=== PATIENT | male | born 1955 | race Caucasian/White ===

== ENCOUNTER 2020-01-11 08:13 | Outpatient (REF) | payer MEDICARE, SELFPAY ==
--- NOTE | 2020-01-11 08:22 | FL_ITS ---
EXAMINATION: BARIUM SWALLOW. CLINICAL INFORMATION: Zenker's diverticulum as per patient with dysphagia. COMPARISON: None. TECHNIQUE: Routine upright barium swallow with thick barium and prone lying with thin barium was performed. FINDINGS: Following oral administration of thick barium in upright view, there is normal propagation of bolus from the oral cavity through the pharynx and esophagus and into the stomach without any evidence of obstruction, narrowing or stricture. A prominent cricoesophageal sphincter seen on AP view. Just proximal to the cricoesophageal sphincter is slight posterior outpouching, not a true diverticulum. There is no Zenker's diverticulum is seen. There is mild posterior wall outpouching seen in the inferior pharynx on right oblique view RF #11. Mild retention of barium seen in the valleculae and piriform sinuses. No laryngeal penetration or aspiration seen. On placing patient supine and prone lying, there is good distention of the esophagus without any obstruction or narrowing. No gastroesophageal reflux or hiatal hernia seen. IMPRESSION: Slight outpouching in the region of cervical esophagus above the cricoesophageal sphincter. No true Zenker's diverticulum seen. Small outpouching in the inferior pharynx along the posterior wall, likely small pharyngeal diverticulum. FLUOROSCOPY TIME: 1.5 minutes. TOTAL DOSE: 38.13 mGy.
== END 2020-01-11 08:14 | disposition home or self-care (01) ==
LOC: HO.XRAY 08:13
PROVIDERS: Visit Provider Otolaryngology
DX: R13.10 Dysphagia, unspecified (principal)
CPT/HCPCS: 74220

== ENCOUNTER 2020-06-15 08:05 | Inpatient (IN) | payer MEDICARE, SELFPAY ==
--- NOTE | ~2020-06-15 | CT_ITS ---
EXAMINATION: CT HEAD WITHOUT CONTRAST CLINICAL INFORMATION: Confusion. COMPARISON: None TECHNIQUE: Contiguous axial imaging was performed from the skull base to vertex without intravenous administration of contrast. This CT examination was performed using dose optimization techniques as appropriate, variously including the following: *Automated exposure control *Adjustment of mA and/or kV according to patient size (this includes techniques or standardized protocols for targeted exams where dose is matched to indication/reason for exam; i.e. extremities or head) *Use of iterative reconstruction technique DLP: 756 mGy-cm FINDINGS: There is no evidence of acute intracranial hemorrhage or territorial infarction. No abnormal mass effect or midline shift is seen. [place] to white matter differentiation is well preserved. No extra-axial fluid collections are identified. The ventricles are normal in size. There is no abnormal attenuation within the brain parenchyma. The osseous structures and soft tissues are normal. The mastoid air cells and visualized portions of the paranasal sinuses are well aerated. CT/CT head/brain wo con IMPRESSION: No acute intracranial process seen
[2020-06-15 08:08] VITALS: BP 147/87; PULSE 82; RESP 18; TEMP 36.8; O2SAT 96; BMI 24.7
--- NOTE | 2020-06-15 09:05 | ED_ITS ---
HPI - Psych General Chief Complaint: Psychiatric Symptoms Stated Complaint: psych eval Time Seen by Provider: 06/15/20 08:33 Source: patient Mode of arrival: ambulatory Limitations: no limitations History of Present Illness HPI Narrative: 64 y/o male with a history of generalized anxiety disorder presents to the ER for ECT. He was instructed to come to the ER by his psychiatrist Dr. Marley. He states over the last 1 year his anxiety has been getting worse. He is currently on fluoxetine, gabapentin, & ativan. Dr. Marley made his ativan scheduled a few weeks ago. He reports when he takes the medication it helps his anxiety but he is concerned about getting addicted to it. He sometimes tries to take 1/2 of the ativan to see if it will control his symptoms but often ends up taking the other half for ongoing anxiety. He denies suicidal ideation. MD complaint: anxiety Onset (ago): month(s) Duration: getting worse History of same: Yes Relieving factors: medication Exacerbating factors: none Associated psychiatric symptoms: none Associated symptoms: denies other symptoms Treatments prior to arrival: none Related Data Home Medications Medication Instructions Recorded Confirmed clonidine HCl 1 tab PO BID PRN 06/15/20 06/15/20 fluoxetine 3 cap PO QAM 06/15/20 06/15/20 gabapentin 1 tab PO TID 06/15/20 06/15/20 latanoprost 1 drp OPHTHALMIC (EYE) CONT 06/15/20 06/15/20 lorazepam 1 tab PO BID 06/15/20 06/15/20 risperidone 1 tab PO BEDTIME 06/15/20 06/15/20 Allergies Allergy/AdvReac Type Severity Reaction Status Date / Time morphine Allergy Unknown Verified 06/15/20 10:49 Review of Systems Review of Systems: Constitutional: No Fever, No Chills Cardiovascular: No Chest Pain, No SOB, No Orthopnea, No Edema Respiratory: No Cough, No Sputum, No Wheezing, No dyspnea Gastrointestinal: No Nausea, No Vomiting, No Diarrhea, No abdominal Pain Musculoskeletal: No joint pain, No Myalgias Skin: No Skin Lesions, No rash Neuro: No Weakness, No Numbness, No Dizziness, No Headache Psych: + Anxiety/Panic, No Depression Heme/Lymph: No Bruising, No Lymphadenopathy Endocrine: No Polyuria, No Polydipsia PMFSH Past Medical History Attestation statement: The following information was validated with the patient. Medical History Anxiety Social History Social History Household Members: Spouse Housing: House Do you presently have visiting nurse or other home services: No Alcohol intake: never Smoking Status: Never smoker Smoked in Last 30 Days: No Patient Interested in Nicotine Replacement: No Patient Given Instructions on How to Stop Smoking: No Second Hand Smoke Exposure: No Use of substances other than those prescribed or required for medical reasons: Yes Substance Use Type: Marijuana Substance Use Frequency: Monthly Last Used Substance: Weeks (ago) Currently Displaying Signs/Symptoms of Drug Intoxication Withdrawal: No Any prior treatment program specific to substance use: No Have you been hit, kicked, punched, or otherwise hurt by someone within the past year? If so, by whom?: No Do you feel safe in your current relationship?: Yes Is there a partner from a previous relationship who is making you feel unsafe now?: No Are you made to feel afraid or neglected: No [facility] Practices: anglican Advance Directives: No Advance Directives Information Provided: No Do you have thoughts of harming others: None Do you have a plan to hurt others: No Plan Recently lost weight without trying: No Physical Exam Vital Signs: Vital Signs: Last Vital Signs Temp 97.2 F 06/15/20 13:54 Pulse 72 06/15/20 13:54 Resp 16 06/15/20 13:54 BP 129/83 06/15/20 13:54 Pulse Ox 97 06/15/20 13:54 Body Mass Index 24.7 Appearance: Alert. Oriented X3. No acute distress. Eyes: Pupils equal, round and reactive to light. ENT: Pharynx normal. Neck: Normal inspection. Neck supple. CVS: Normal heart rate and rhythm. Pulses normal. Respiratory: No respiratory distress. Breath sounds normal. Abdomen: Soft and nontender. +BS x4 Skin: Skin warm and dry. Normal skin color. Normal skin turgor. No rashes. Extremities: No lower extremity edema. Neuro: Oriented X 3. No motor deficit. No sensory deficit. Course Course Course Narrative: 64 y/o male with worsening anxiety of the past 1 year on multiple medications who is [place] [facility] [place] Dr. Marley. Monisha Lester aware he is here and planning for admission to [facility] this afternoon. MDM - Psych Lab Data Labs: Lab Results 06/15/20 06/15/20 06/15/20 Range/Units 09:30 09:30 09:39 Urine Color YELLOW Urine Appearance CLEAR Urine pH 5.5 (5.0-8.0) Ur Specific [place] >= 1.030 H (1.005-1.025) Urine Protein NEG (NEG-TRACE) MG/DL Urine Glucose (UA) NEG (NEG) MG/DL Urine Ketones NEG (NEG) MG/DL Urine Blood NEG (NEG) Urine Nitrite NEG (NEG) Ur Leukocyte Esterase NEG (NEG) Urine Opiates Screen Not Detected (Not Detect) Ur Barbiturates Screen Not Detected (Not Detect) Ur Phencyclidine Scrn Not Detected (Not Detect) Ur Amphetamines Screen Not Detected (Not Detect) U Benzodiazepines Scrn Not Detected (Not Detect) Urine Cocaine Screen Not Detected (Not Detect) U Marijuana (THC) Screen POSITIVE H (Not Detect) COVID-19 (VIOLET) Negative (Negative) COVID-19 Clin Com See Note Discharge Plan Discharge Clinical Impression: Anxiety Patient Disposition: Admitted As Inpatient Interventions: Admission Worksheet (ED) Last Done: 06/15/20 13:18 Discharge Date/Time: 06/15/20 13:19
[2020-06-15 09:41] LABS: Glucose Urine UA NEG (NEG); Leukocyte Esterase Urine NEG (NEG); Nitrite Urine NEG (NEG); PH 5.5 (5.0-8.0); Specific Gravity - Urine >= 1.030 (1.005-1.025); Urine Blood NEG (NEG); Urine Ketones NEG (NEG); Urine Protein NEG (NEG-TRACE)
[2020-06-15 09:45] LABS: Appearance Urine CLEAR; Color Urine YELLOW
[2020-06-15 09:59] LABS: Amphetamine Screen Urine Not Detected (Not Detect); Barbiturates, Urine Not Detected (Not Detect); Benzodiazepines Screen Urine Not Detected (Not Detect); Cannabinoid Screen Urine POSITIVE (Not Detect); Cocaine Screen Urine Not Detected (Not Detect); Opiate Screen Urine Not Detected (Not Detect); Phencyclidine Screen Urine Not Detected (Not Detect)
[2020-06-15 10:00] VITALS: RESP 16
[2020-06-15 10:03] LABS: COVID-19 Test Negative (Negative)
--- NOTE | 2020-06-15 10:39 | PC.NURSE ---
Pt has a bed in [facility], pending a discharge in department. He is calm/cooperative, in nad. Initial orders placed by ED provider.
[2020-06-15] MEDS: FLUoxetine HCl 20 MG CAPSULE 60 MG PO (10:49)
--- NOTE | 2020-06-15 12:24 | PC.NURSE ---
[id number] report given to EUGENIA Segovia in [facility].
[2020-06-15] MEDS: LORazepam 0.5 MG TABLET PO ×2 (12:32→19:58)
--- NOTE | 2020-06-15 12:42 | PC.NURSE ---
Pt seen by Psychiatric MD in the behavioral pod. Awaiting transport to .
--- NOTE | 2020-06-15 12:51 | P.HPPS_ITS ---
HPI Chief Complaint: SEVERE DEPRESION Sources of Information: patient interviewed and chart reviewed Additional Sources of Information: Dr. Hussein Marley was called [facility] Subjective Notes: Conditional Voluntary Narrative: The patient is a 64 year old male, for the last 35 years, father of 2 adult children, currently living with his with a history of depression and overwhelming anxiety for the last year after marital conflicts. He stated that he has never been depressed before, no prior history of psychosis or yaya. He stated that 1 year ago, he had a problems with his , acknowledged bad decisions that lead him to a separation that eventually, they went back together but, at the moment of the separation, he got in crisis and he had to be admitted to [facility] for depression with psychotic features. He was treated outpatient by Dr. Marley and eventually, he was referred to [facility] with no improvement. During the intake interview, he reported that he has been taking Prozac titrated slowly up to 80 mg with minimal improvement of his anxiety and he had also Risperdal 2 mg po qhs, Gabapentin 600 mg po tid and Ativan PRN. Since he had no improvement, his primary psychiatrist and the patient decided to have ECT. He is fully aware of the risks and benefits and he was already educated into the procedure. At this moment, he is willing to contract for safety, he adamantly denied psychotic symptoms or prior history of yaya. He has a strong family history of depression since his brother had depression that improved with Paxil. He is admitted to start ECT treatment. Past Psychiatric History: See HPI, apparently, his first depressive episode started a year ago after the separation of his , with a prior admission to [facility] for depression with psychosis Medical Evaluation Reviewed: Hospitalist Shaun Pending [facility] Medical History Anxiety Narrative: Report anxiety after his first depressive episode one year ago Family History: Brother suffers of MDD, treated very well with Paxil Social History: The patient is the youngest of 3 siblings, his milestones were achieved at expected age, he was raised by his parents and he had a good childhood. He attended regular school, graduated and later went to college. 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 He has good social support Substance History: Denies besides the sporadic use of cannabis. Trauma History: Denies Diagnostics Vital Signs (24Hr): Vital Signs - 24 hr 06/15/20 08:08 06/15/20 10:00 Temperature 98.2 F Pulse Rate 82 Respiratory Rate 18 16 Blood Pressure 147/87 H Pulse Oximetry 96 Body Mass Index 24.7 Labs Labs: Laboratory Results - last 48 hr 06/15/20 06/15/20 06/15/20 09:30 09:30 09:39 Urine Color YELLOW Urine Appearance CLEAR Urine pH 5.5 Ur Specific [place] >= 1.030 H Urine Protein NEG Urine Glucose (UA) NEG Urine Ketones NEG Urine Blood NEG Urine Nitrite NEG Ur Leukocyte Esterase NEG Urine Opiates Screen Not Detected Ur Barbiturates Screen Not Detected Ur Phencyclidine Scrn Not Detected Ur Amphetamines Screen Not Detected U Benzodiazepines Scrn Not Detected Urine Cocaine Screen Not Detected U Marijuana (THC) Screen POSITIVE H COVID-19 ([facility]IOLET) Negative COVID-19 Clin Com See Note Meds/Allergies Meds Home Medications Acetaminophen (Acetaminophen 325 Mg Tablet) 650 mg PO Q6H PRN PRN Reason: Headache/Pain Mild Scale (1-3) Al Hydroxide/Mg Hydroxide (Magnesium Hydrox/Alum Hydrox 30 Ml Oral.Susp) 30 ml PO Q6H PRN PRN Reason: Heartburn/Nausea Clonidine HCl (Clonidine Hcl 0.1 Mg Tablet) 0.1 mg PO BID PRN; Protocol PRN Reason: anxiety Fluoxetine HCl (Fluoxetine Hcl 20 Mg Capsule) 60 mg PO DAILY [facility] Last Admin: 06/15/20 10:49 Dose: 60 mg Documented by: Gabapentin (Gabapentin 600 Mg Tablet) 600 mg PO TID [facility] Hydroxyzine HCl (Hydroxyzine Hcl 25 Mg Tablet) 25 mg PO BEDTIME PRN PRN Reason: Anxiety Lorazepam (Lorazepam 0.5 Mg Tablet) 0.5 mg PO BID [facility] Last Admin: 06/15/20 12:32 Dose: 0.5 mg Documented by: Magnesium Hydroxide (Milk Of Magnesia 30 Ml Oral.Susp) 30 ml PO DAILY PRN PRN Reason: Constipation Risperidone (Risperidone 2 Mg Tablet) 2 mg PO BEDTIME SMITA Trazodone HCl (Trazodone Hcl 50 Mg Tablet) 50 mg PO BEDTIME PRN PRN Reason: Insomnia Allergies Allergies Allergy/AdvReac Type Severity Reaction Status Date / Time morphine Allergy Unknown Verified 06/15/20 10:49 Mental Status Exam Mental Status Exam Patient Appearance: Fatigued and Appropriate Patient Orientation: Person, Place, Time and Situation Level of Consciousness: Awake Patient Behavior: Appropriate, Cooperative and Good Eye Contact Mood Description: Depressed Affect Description: Constricted Patient Cognition Impaired: No Ability to Follow Directions: Good Speech Pattern: Clear Memory Description: Intact Hallucinations: None Delusions: Not Present Thought Process: Goal Oriented Thought Content: positive for Intact Depressive Symptoms: Increased Anxiety Judgement: Good Judgement and Insight: Insight good Assessment & Plan Assessment & Plan (1) Major depressive disorder with psychotic features: Status: Acute Code(s): F32.3 - Major depressive disorder, single episode, severe with psychotic features Patient educated on: diagnosis, medication risk/benefits and ECT Informed Consent: understands Reason for continued inpatient stay Substantial Risk for: inability to function
--- NOTE | 2020-06-15 13:33 | ECG_ITS ---
Test Reason : PREOP Blood Pressure : / mmHG Vent. Rate : 071 BPM Atrial Rate : 071 BPM P-R Int : 160 ms QRS Dur : 106 ms QT Int : 390 ms P-R-T Axes : 053 -69 016 degrees QTc Int : 423 ms Normal sinus rhythm Left anterior fascicular block Abnormal ECG No previous ECGs available Referred By: Dave Ibrahim Electronically Signed By:OCTAVIO PRASAD
[2020-06-15 13:54] VITALS: BP 129/83; PULSE 72; RESP 16; TEMP 36.2; O2SAT 97
--- NOTE | 2020-06-15 14:39 | PC.NURSE ---
Pt signed 3 day 06/15/20
--- NOTE | 2020-06-15 14:52 | PC.ADMIT ---
Pt is a 64 year old caucasion male, Estonian speaking, who presented the ED for depression. Pt referred to for scheduled ECT. Pt arrived on a CV, pt signed 3 day upon arrival to the unit. 3 day up on 06/20/20. Pt is covid negative. UTOX positive for cannabis. Per care team report pt has been struggling with major depression that was late onset for the past year. Per report Pt has also experienced visual hallucinations with daily SI. During assessment with the pt he denied any AH or SI. Pt has a therapist and a psychiatrist. Pt has no outpatient services in the community. Pt denies history of trauma. Pt denies any medical history. Pt sts he uses cannabis sparingly. Pt sts I'm coming here because it was the quickest way to get ECT, I plan on leaving Saturday and continuing with outpatient ECT . Pt lives with his spouse and has a strong support system. Pt and his spouse live in the [facility]. Pt denies SI/HI, AH/VH and contracts for safety. Pt on 15 min safety checks. Pt is calm and cooperative with admission assessment. Pt denies pain or discomfort. Pt alert and oriented x 4. Clear thoughts, stable mood.
[2020-06-15 17:10] VITALS: BP 156/90; PULSE 75; TEMP 36.4
[2020-06-15 17:19] VITALS: BP 156/90; PULSE 75
[2020-06-15] MEDS: cloNIDine HCL 0.1 MG TABLET PO (17:19)
[2020-06-15 18:45] VITALS: BP 129/76; PULSE 73
[2020-06-15] MEDS: risperiDONE 2 MG TABLET PO (19:57)
[2020-06-15] MEDS: Gabapentin 300 MG CAPSULE PO (19:57)
[2020-06-16 04:26] VITALS: BP 157/95; PULSE 89
[2020-06-16] MEDS: cloNIDine HCL 0.1 MG TABLET PO ×2 (04:26→19:37)
[2020-06-16 06:25] VITALS: BP 130/86; PULSE 88; RESP 16; TEMP 36.7; O2SAT 95
[2020-06-16] MEDS: LORazepam 0.5 MG TABLET PO ×3 (06:38→19:38)
[2020-06-16] MEDS: Gabapentin 300 MG CAPSULE PO (09:12)
[2020-06-16] MEDS: FLUoxetine HCl 20 MG CAPSULE 60 MG PO (09:13)
[2020-06-16 09:35] LABS: MANUAL DIFF FLAG NO
[2020-06-16 09:38] LABS: Basophils Percent Auto 0.4 % (0-2); Eosinophils Absolute Auto 0.1 X10*3/uL (0.0-0.4); Eosinophils Percent Auto 0.9 % (0-4); Hematocrit 46.6 % (42-52); Hemoglobin 15.7 g/dl (14.0-18.0); Imm Gran Abs Auto 0.01 X10*3/uL (0.00-0.03); Imm Gran Pct Auto 0.1 % (0.0-0.4); Lymphocytes Absolute Auto 1.1 X10*3/uL (1.2-4.9); Lymphocytes Percent Auto 16.4 % (20-40); Mean Corpuscular HGB Conc 33.7 g/dl (31.0-36.0); Mean Corpuscular Hemoglobin 29.9 pg (27.0-33.0); Mean Corpuscular Volume 88.8 fL (80-98); Monocytes Absolute Auto 0.4 X10*3/uL (0.1-1.2); Monocytes Percent Auto 5.8 % (2-11); Neutrophils Absolute Auto 5.1 X10*3/uL (2.0-8.3); Neutrophils Percent Auto 76.4 % (45-73); Platelet Count 206 X10*3/uL (160-400); Red Blood Count 5.25 X10*6/uL (4.60-5.80); Red Cell Distribution Width 12.6 % (11.0-16.0); White Blood Count 6.7 X10*3/uL (4.8-10.8)
--- NOTE | 2020-06-16 09:52 | P.PNPSI_ITS ---
Subjective Subjective Date of Service: 06/16/20 Reason For Visit: SEVERE DEPRESION Subjective Notes: Conditional Voluntary Interim History: The patient complained of more anxiety than usual with upset stomach at night, most likely to the decrease of Gabapentin that we ordered yesterday due to ECT tomorrow AM Medication Compliance: Yes Side effects from medications: No Attending Groups: Yes Review of Systems Acute medical concerns: No Medical Review of Systems: unchanged Review of Systems Review of Systems Yes all other systems are reviewed and are negative Mental Status Exam Mental Status Exam Patient Appearance: Disheveled Patient Orientation: Person, Place, Time and Situation Level of Consciousness: Awake Patient Behavior: Appropriate Mood Description: Withdrawn and Depressed Affect Description: Constricted and Anxious Patient Cognition Impaired: No Ability to Follow Directions: Good Speech Pattern: Clear Memory Description: Intact Hallucinations: None Delusions: Not Present Thought Process: Goal Oriented Thought Content: positive for Preoccupation Depressive Symptoms: Increased Anxiety Judgement: Fair Judgement and Insight: iMPROVED INSIGHT Diagnostics Vital Signs (24Hr): Vital Signs - 24 hr 06/15/20 10:00 06/15/20 13:54 06/15/20 17:10 Temperature 97.2 F 97.5 F Pulse Rate 72 75 Respiratory Rate 16 16 Blood Pressure 129/83 156/90 H Pulse Oximetry 97 06/15/20 17:19 06/15/20 18:45 06/16/20 04:26 Temperature Pulse Rate 75 73 89 Respiratory Rate Blood Pressure 156/90 H 129/76 157/95 H Pulse Oximetry 06/16/20 06:25 Temperature 98.1 F Pulse Rate 88 Respiratory Rate 16 Blood Pressure 130/86 Pulse Oximetry 95 Body Mass Index 24.7 Labs Results: 06/16/20 09:20 06/16/20 09:20 Labs: Laboratory Results - last 48 hr 06/15/20 06/15/20 06/15/20 09:30 09:30 09:39 WBC RBC Hgb Hct MCV MCH MCHC RDW Plt Count MPV Immature Gran % (Auto) Neut % (Auto) Lymph % (Auto) [place] % (Auto) Eos % (Auto) Baso % (Auto) Lymph # (Auto) [place] # (Auto) Eos # (Auto) Baso # (Auto) Abs Immat Gran (auto) Absolute Neuts (auto) Absolute Nucleated RBC Nucleated RBC % (auto) Urine Color YELLOW Urine Appearance CLEAR Urine pH 5.5 Ur Specific [place] >= 1.030 H Urine Protein NEG Urine Glucose (UA) NEG Urine Ketones NEG Urine Blood NEG Urine Nitrite NEG Ur Leukocyte Esterase NEG Urine Opiates Screen Not Detected Ur Barbiturates Screen Not Detected Ur Phencyclidine Scrn Not Detected Ur Amphetamines Screen Not Detected U Benzodiazepines Scrn Not Detected Urine Cocaine Screen Not Detected U Marijuana (THC) Screen POSITIVE H COVID-19 ([facility]IOLET) Negative COVID-19 Clin Com See Note 06/16/20 09:20 WBC 6.7 RBC 5.25 Hgb 15.7 Hct 46.6 MCV 88.8 MCH 29.9 MCHC 33.7 RDW 12.6 Plt Count 206 MPV 10.0 Immature Gran % (Auto) 0.1 Neut % (Auto) 76.4 H Lymph % (Auto) 16.4 L [place] % (Auto) 5.8 Eos % (Auto) 0.9 Baso % (Auto) 0.4 Lymph # (Auto) 1.1 L [place] # (Auto) 0.4 Eos # (Auto) 0.1 Baso # (Auto) 0.0 Abs Immat Gran (auto) 0.01 Absolute Neuts (auto) 5.1 Absolute Nucleated RBC 0.000 Nucleated RBC % (auto) 0.0 Urine Color Urine Appearance Urine pH Ur Specific [place] Urine Protein Urine Glucose (UA) Urine Ketones Urine Blood Urine Nitrite Ur Leukocyte Esterase Urine Opiates Screen Ur Barbiturates Screen Ur Phencyclidine Scrn Ur Amphetamines Screen U Benzodiazepines Scrn Urine Cocaine Screen U Marijuana (THC) Screen COVID-19 ([facility]IOLET) COVID-19 Clin Com Medications Medications Current Medications Generic Name Dose Route Start Last Admin Trade Name Freq PRN Reason Stop Dose Admin Acetaminophen 650 mg 06/15/20 13:33 Acetaminophen 325 Mg Tablet PO Q6H PRN Headache/Pain Mild Scale (1-3) Acetaminophen 650 mg 06/15/20 14:36 Acetaminophen 325 Mg Tablet PO Q6H PRN Headache/Pain Mild Scale (1-3) Al Hydroxide/Mg Hydroxide 30 ml 06/15/20 13:33 Magnesium Hydrox/Alum Hydrox 30 Ml Oral.Susp PO Q6H PRN Heartburn/Nausea Al Hydroxide/Mg Hydroxide 30 ml 06/15/20 14:36 Magnesium Hydrox/Alum Hydrox 30 Ml Oral.Susp PO Q6H PRN Heartburn/Nausea Clonidine HCl 0.1 mg 06/15/20 09:50 06/16/20 04:26 Clonidine Hcl 0.1 Mg Tablet PO 0.1 mg BID PRN Administration anxiety Protocol Fluoxetine HCl 60 mg 06/17/20 06:00 Fluoxetine Hcl 20 Mg Capsule PO DAILY SMITA Gabapentin 300 mg 06/15/20 21:00 06/16/20 09:12 Gabapentin 300 Mg Capsule PO 300 mg BID SMITA Administration Hydroxyzine HCl 25 mg 06/15/20 13:33 Hydroxyzine Hcl 25 Mg Tablet PO BEDTIME PRN Anxiety Hydroxyzine HCl 25 mg 06/15/20 14:36 Hydroxyzine Hcl 25 Mg Tablet PO BEDTIME PRN Anxiety Lorazepam 0.5 mg 06/15/20 12:00 06/16/20 09:14 Lorazepam 0.5 Mg Tablet PO 0.5 mg BID SMITA Administration Lorazepam 0.5 mg 06/16/20 09:49 Lorazepam 0.5 Mg Tablet PO 06/16/20 23:59 RQ4H PRN Anxiety Magnesium Hydroxide 30 ml 06/15/20 13:33 Milk Of Magnesia 30 Ml Oral.Susp PO DAILY PRN Constipation Magnesium Hydroxide 30 ml 06/15/20 14:36 Milk Of Magnesia 30 Ml Oral.Susp PO DAILY PRN Constipation Risperidone 2 mg 06/15/20 21:00 06/15/20 19:57 Risperidone 2 Mg Tablet PO 2 mg BEDTIME SMITA Administration Trazodone HCl 50 mg 06/15/20 13:33 Trazodone Hcl 50 Mg Tablet PO BEDTIME PRN Insomnia Trazodone HCl 50 mg 06/15/20 14:36 Trazodone Hcl 50 Mg Tablet PO BEDTIME PRN Insomnia Allergies Allergies Allergy/AdvReac Type Severity Reaction Status Date / Time morphine Allergy Unknown Verified 06/15/20 10:49 Assessment & Plan Assessment & Plan (1) Major depressive disorder with psychotic features: Status: Acute Code(s): F32.3 - Major depressive disorder, single episode, severe with psychotic features (2) Anxiety: Status: Acute Code(s): F41.9 - Anxiety disorder, unspecified Greater than 50% of the session was spent on counseling and/or coordination of care the patient reported increased anxiety while in the unit. We discussed options and he agreed to increase PRN Ativan while in the unit Patient educated on: diagnosis, medication risk/benefits, ECT and therapeutic strategies Informed Consent: understands Reason for contiued inpatient stay Substantial Risk for: inability to function
[2020-06-16 10:03] LABS: Alanine Aminotransferase 10 U/L (0-40); Albumin Level 4.5 g/dL (3.5-5.0); Alkaline Phosphatase 102 U/L (39-117); Anion Gap 14 (12-20); Aspartate Amino Transferase 15 U/L (5-37); Bilirubin Total 0.5 mg/dL (0.0-1.0); Blood Urea Nitrogen 14 mg/dL (9-16); Carbon Dioxide 24 mmol/L (22-29); Chloride 105 mmol/L (96-108); Creatinine Clr Calc Pharmacy 82.5; Estimated Glomerular Filt Rate > 60; Glucose Fasting 131 mg/dL (60-99); Potassium 4.2 mmol/L (3.3-5.1); Sodium 139 mmol/L (135-145); Total Protein 7.8 g/dL (6.5-8.0)
[2020-06-16 13:42] VITALS: BMI 24.7
[2020-06-16] MEDS: Latanoprost 0.005 % Ophth Sol 2.5 ML DROPS 1 DROP EYE-RIGHT (15:14)
--- NOTE | 2020-06-16 16:53 | PM.IMHP ---
History of Present Illness Date of Service: 06/16/20 Chief Complaint: Pre-ECT eval 64 year old male with history anxiety and depression, pre-diabetes who is presently admitted to inpatient Psych due to worsening depression/anxiety and is been evaluated for ECT. This is his first ECT. There is no history of cardiac issues and has no EPSTEIN or angina. He doesn't think medication are working for depression or anxiety and hoping that ECT will help him. He is otherwise a very pleasant man. Review of Systems Review of Systems: Gen: no fever Resp: no sob, no cough CV: no chest, no EPSTEIN, no leg edema GI: No n/v, no abd pain Neuro: No confusion [facility] Medical History Anxiety Depression Pertinent family history: mother with glaucome Family history: reviewed and not pertinent Social History Household Members: Spouse Housing: House Do you presently have visiting nurse or other home services: No Alcohol intake: never Smoking Status: Never smoker Smoked in Last 30 Days: No Patient Interested in Nicotine Replacement: No Patient Given Instructions on How to Stop Smoking: No Second Hand Smoke Exposure: No Use of substances other than those prescribed or required for medical reasons: Yes Substance Use Type: Marijuana Substance Use Frequency: Monthly Last Used Substance: Weeks (ago) Currently Displaying Signs/Symptoms of Drug Intoxication Withdrawal: No Any prior treatment program specific to substance use: No Have you been hit, kicked, punched, or otherwise hurt by someone within the past year? If so, by whom?: No Do you feel safe in your current relationship?: Yes Is there a partner from a previous relationship who is making you feel unsafe now?: No Are you made to feel afraid or neglected: No Muslim Healthcare Practices: holiness Advance Directives: No Advance Directives Information Provided: No Do you have thoughts of harming others: None Do you have a plan to hurt others: No Plan Recently lost weight without trying: No service: No Sexual orientation: Straight/Heterosexual Narrative: /recommendation: 64 year old male with depression/anxiety being considered for ECT for depression that is refractory to pharmacological therapy. He has no known cardiac condition. ECG reviewed and showed left antirior fascular block with no previous for comparaison. He has no angina or EPSTEIN..No contraindication to ECT at this time and no additional work up indicated. Proceed with usual ECT precaution/anesthesia monitoring. Meds Allergies Allergy/AdvReac Type Severity Reaction Status Date / Time morphine Allergy Unknown Verified 06/15/20 10:49 Active Medications: Current Medications Generic Name Dose Route Start Last Admin Trade Name Freq PRN Reason Stop Dose Admin Acetaminophen 650 mg 06/15/20 13:33 Acetaminophen 325 Mg Tablet PO Q6H PRN Headache/Pain Mild Scale (1-3) Acetaminophen 650 mg 06/15/20 14:36 Acetaminophen 325 Mg Tablet PO Q6H PRN Headache/Pain Mild Scale (1-3) Al Hydroxide/Mg Hydroxide 30 ml 06/15/20 13:33 Magnesium Hydrox/Alum Hydrox 30 Ml Oral.Susp PO Q6H PRN Heartburn/Nausea Al Hydroxide/Mg Hydroxide 30 ml 06/15/20 14:36 Magnesium Hydrox/Alum Hydrox 30 Ml Oral.Susp PO Q6H PRN Heartburn/Nausea Clonidine HCl 0.1 mg 06/15/20 09:50 06/16/20 04:26 Clonidine Hcl 0.1 Mg Tablet PO 0.1 mg BID PRN Administration anxiety Protocol Fluoxetine HCl 60 mg 06/17/20 06:00 Fluoxetine Hcl 20 Mg Capsule PO DAILY SMITA Gabapentin 300 mg 06/15/20 21:00 06/16/20 09:12 Gabapentin 300 Mg Capsule PO 300 mg BID SMITA Administration Hydroxyzine HCl 25 mg 06/15/20 13:33 Hydroxyzine Hcl 25 Mg Tablet PO BEDTIME PRN Anxiety Hydroxyzine HCl 25 mg 06/15/20 14:36 Hydroxyzine Hcl 25 Mg Tablet PO BEDTIME PRN Anxiety Latanoprost 1 drop 06/16/20 14:00 06/16/20 15:14 Latanoprost 0.005 % Ophth Jannette 2.5 Ml Drops EYE-RIGHT 1 drop DAILY@1400 SMITA Administration Lorazepam 0.5 mg 06/15/20 12:00 06/16/20 09:14 Lorazepam 0.5 Mg Tablet PO 0.5 mg BID SMITA Administration Lorazepam 0.5 mg 06/16/20 09:49 Lorazepam 0.5 Mg Tablet PO Q4H PRN Anxiety Magnesium Hydroxide 30 ml 06/15/20 13:33 Milk Of Magnesia 30 Ml Oral.Susp PO DAILY PRN Constipation Magnesium Hydroxide 30 ml 06/15/20 14:36 Milk Of Magnesia 30 Ml Oral.Susp PO DAILY PRN Constipation Risperidone 2 mg 06/15/20 21:00 06/15/20 19:57 Risperidone 2 Mg Tablet PO 2 mg BEDTIME SMITA Administration Trazodone HCl 50 mg 06/15/20 13:33 Trazodone Hcl 50 Mg Tablet PO BEDTIME PRN Insomnia Trazodone HCl 50 mg 06/15/20 14:36 Trazodone Hcl 50 Mg Tablet PO BEDTIME PRN Insomnia Home Medications Medication Instructions Recorded Confirmed Last Taken Type clonidine HCl 1 tab PO BID PRN 06/15/20 06/15/20 Unknown History fluoxetine 3 cap PO QAM 06/15/20 06/15/20 Unknown History gabapentin 1 tab PO TID 06/15/20 06/15/20 Unknown History latanoprost 1 drp OPHTHALMIC (EYE) CONT 06/15/20 06/15/20 Unknown History lorazepam 1 tab PO BID 06/15/20 06/15/20 Unknown History risperidone 1 tab PO BEDTIME 06/15/20 06/15/20 Unknown History Physical Exam Vital Signs and Narrative: Vital Signs: Last Vital Signs Temp 98.1 F 06/16/20 06:25 Pulse 88 06/16/20 06:25 Resp 16 06/16/20 06:25 BP 130/86 06/16/20 06:25 Pulse Ox 95 06/16/20 06:25 Body Mass Index 24.7 Constitutional Awake and Alert, No apparent distress Neck Supple, No lymphadenopathy Cardiovascular RRR, No M/R/G, S1 S2, No S3 S4, No pedal edema Respiratory Lungs clear, No respiratory distress Gastrointestinal Non tender, Non-distended Skin No rash Neurological Alert & oriented x3 Psychological Appropriate affect Results Labs CBC and Chem 7: 06/16/20 09:20 06/16/20 09:20 Labs: Laboratory Results - last 24 hr 06/16/20 06/16/20 09:20 09:20 MCV 88.8 MCH 29.9 MCHC 33.7 RDW 12.6 Plt Count 206 MPV 10.0 Immature Gran % (Auto) 0.1 Neut % (Auto) 76.4 H Lymph % (Auto) 16.4 L [place] % (Auto) 5.8 Eos % (Auto) 0.9 Baso % (Auto) 0.4 Lymph # (Auto) 1.1 L [place] # (Auto) 0.4 Eos # (Auto) 0.1 Baso # (Auto) 0.0 Abs Immat Gran (auto) 0.01 Absolute Neuts (auto) 5.1 Absolute Nucleated RBC 0.000 Nucleated RBC % (auto) 0.0 Anion Gap 14 Estim Creat Clear Calc 82.5 Estimated GFR > 60 Fasting Glucose 131 H Calcium 9.0 Total Bilirubin 0.5 AST 15 ALT 10 Alkaline Phosphatase 102 Total Protein 7.8 Albumin 4.5 Imaging Radiologist's Impressions: Impressions Head CT 06/16/20 13:20 IMPRESSION: No acute intracranial process seen
[2020-06-16 19:37] VITALS: BP 158/98; PULSE 75
[2020-06-16] MEDS: risperiDONE 2 MG TABLET PO (19:38)
[2020-06-16] MEDS: traZODone HCL 50 MG TABLET PO (19:58)
[2020-06-16 20:05] VITALS: BP 151/86; PULSE 73
[2020-06-17] VITALS (13 sets, daily range): BP systolic 107–165; BP diastolic 67–99; PULSE 62–103; RESP 16–17; TEMP 36.3–37; O2SAT 93–99
[2020-06-17] MEDS: cloNIDine HCL 0.1 MG TABLET PO ×2 (02:50→10:35)
[2020-06-17] MEDS: traZODone HCL 50 MG TABLET PO ×2 (02:50→20:13)
[2020-06-17] MEDS: hydrOXYzine HCL 25 MG TABLET PO ×2 (02:50→20:13)
[2020-06-17] MEDS: LORazepam 0.5 MG TABLET PO ×4 (06:27→20:13)
--- NOTE | 2020-06-17 07:52 | HO.ANESPROP2 ---
[facility] Active Problems Active Problems: All Active Problems (Updated 06/15/20 @ 15:18 by Margaret Morrell RN) Anxiety (Acute) Major depressive disorder with psychotic features (Acute) Past Medical History Medical History Anxiety Depression Social History Social History Household Members: Spouse Housing: House Do you presently have visiting nurse or other home services: No Alcohol intake: never Smoking Status: Never smoker Smoked in Last 30 Days: No Patient Interested in Nicotine Replacement: No Patient Given Instructions on How to Stop Smoking: No Second Hand Smoke Exposure: No Use of substances other than those prescribed or required for medical reasons: Yes Substance Use Type: Marijuana Substance Use Frequency: Monthly Last Used Substance: Weeks (ago) Currently Displaying Signs/Symptoms of Drug Intoxication Withdrawal: No Any prior treatment program specific to substance use: No Have you been hit, kicked, punched, or otherwise hurt by someone within the past year? If so, by whom?: No Do you feel safe in your current relationship?: Yes Is there a partner from a previous relationship who is making you feel unsafe now?: No Are you made to feel afraid or neglected: No Buddhist Healthcare Practices: confucianism Advance Directives: No Advance Directives Information Provided: No Do you have thoughts of harming others: None Do you have a plan to hurt others: No Plan Recently lost weight without trying: No service: No Sexual orientation: Straight/Heterosexual Meds Allergies Allergy/AdvReac Type Severity Reaction Status Date / Time morphine Allergy Unknown Verified 06/15/20 10:49 Active Medications: Current Medications Generic Name Dose Route Start Last Admin Trade Name Freq PRN Reason Stop Dose Admin Acetaminophen 650 mg 06/15/20 13:33 Acetaminophen 325 Mg Tablet PO Q6H PRN Headache/Pain Mild Scale (1-3) Acetaminophen 650 mg 06/15/20 14:36 Acetaminophen 325 Mg Tablet PO Q6H PRN Headache/Pain Mild Scale (1-3) Al Hydroxide/Mg Hydroxide 30 ml 06/15/20 13:33 Magnesium Hydrox/Alum Hydrox 30 Ml Oral.Susp PO Q6H PRN Heartburn/Nausea Al Hydroxide/Mg Hydroxide 30 ml 06/15/20 14:36 Magnesium Hydrox/Alum Hydrox 30 Ml Oral.Susp PO Q6H PRN Heartburn/Nausea Clonidine HCl 0.1 mg 06/15/20 09:50 06/17/20 02:50 Clonidine Hcl 0.1 Mg Tablet PO 0.1 mg BID PRN Administration anxiety Protocol Fluoxetine HCl 60 mg 06/17/20 06:00 Fluoxetine Hcl 20 Mg Capsule PO DAILY SMITA Gabapentin 300 mg 06/15/20 21:00 06/16/20 17:24 Gabapentin 300 Mg Capsule PO Not Given BID SMITA Hydroxyzine HCl 25 mg 06/15/20 13:33 06/17/20 02:50 Hydroxyzine Hcl 25 Mg Tablet PO 25 mg BEDTIME PRN Administration Anxiety Hydroxyzine HCl 25 mg 06/15/20 14:36 Hydroxyzine Hcl 25 Mg Tablet PO BEDTIME PRN Anxiety Latanoprost 1 drop 06/16/20 14:00 06/16/20 15:14 Latanoprost 0.005 % Ophth Jannette 2.5 Ml Drops EYE-RIGHT 1 drop DAILY@1400 SMITA Administration Lorazepam 0.5 mg 06/15/20 12:00 06/16/20 19:38 Lorazepam 0.5 Mg Tablet PO 0.5 mg BID SMITA Administration Lorazepam 0.5 mg 06/16/20 09:49 06/17/20 06:27 Lorazepam 0.5 Mg Tablet PO 0.5 mg Q4H PRN Administration Anxiety Magnesium Hydroxide 30 ml 06/15/20 13:33 Milk Of Magnesia 30 Ml Oral.Susp PO DAILY PRN Constipation Magnesium Hydroxide 30 ml 06/15/20 14:36 Milk Of Magnesia 30 Ml Oral.Susp PO DAILY PRN Constipation Risperidone 2 mg 06/15/20 21:00 06/16/20 19:38 Risperidone 2 Mg Tablet PO 2 mg BEDTIME SMITA Administration Trazodone HCl 50 mg 06/15/20 13:33 06/17/20 02:50 Trazodone Hcl 50 Mg Tablet PO 50 mg BEDTIME PRN Administration Insomnia Trazodone HCl 50 mg 06/15/20 14:36 Trazodone Hcl 50 Mg Tablet PO BEDTIME PRN Insomnia Home Medications Medication Instructions Recorded Confirmed Last Taken Type clonidine HCl 1 tab PO BID PRN 06/15/20 06/15/20 Unknown History fluoxetine 3 cap PO QAM 06/15/20 06/15/20 Unknown History gabapentin 1 tab PO TID 06/15/20 06/15/20 Unknown History latanoprost 1 drp OPHTHALMIC (EYE) CONT 06/15/20 06/15/20 Unknown History lorazepam 1 tab PO BID 06/15/20 06/15/20 Unknown History risperidone 1 tab PO BEDTIME 06/15/20 06/15/20 Unknown History Exam Exam Date and Time: June 17, 2020 0752 Height,Weight and Vital Signs: Height 5 ft 11 in Weight 80.4 kg Last Vital Signs Temp 98.6 F 06/17/20 06:25 Pulse 103 H 06/17/20 06:25 Resp 16 06/17/20 06:25 BP 120/85 06/17/20 06:25 Pulse Ox 95 06/17/20 06:00 Pertinent Lab Results Pertinent Lab Results: Laboratory Tests 06/15/20 06/15/20 06/15/20 09:30 09:30 09:39 WBC RBC Hgb Hct MCV MCH MCHC RDW Plt Count MPV Immature Gran % (Auto) Neut % (Auto) Lymph % (Auto) [place] % (Auto) Eos % (Auto) Baso % (Auto) Lymph # (Auto) [place] # (Auto) Eos # (Auto) Baso # (Auto) Abs Immat Gran (auto) Absolute Neuts (auto) Absolute Nucleated RBC Nucleated RBC % (auto) Sodium Potassium Chloride Carbon Dioxide Anion Gap BUN Creatinine Estim Creat Clear Calc Estimated GFR Fasting Glucose Calcium Total Bilirubin AST ALT Alkaline Phosphatase Total Protein Albumin Urine Color YELLOW Urine Appearance CLEAR Urine pH 5.5 Ur Specific [place] >= 1.030 H Urine Protein NEG Urine Glucose (UA) NEG Urine Ketones NEG Urine Blood NEG Urine Nitrite NEG Ur Leukocyte Esterase NEG Urine Opiates Screen Not Detected Ur Barbiturates Screen Not Detected Ur Phencyclidine Scrn Not Detected Ur Amphetamines Screen Not Detected U Benzodiazepines Scrn Not Detected Urine Cocaine Screen Not Detected U Marijuana (THC) Screen POSITIVE H COVID-19 ([facility]IOLET) Negative COVID-19 Clin Com See Note 06/16/20 06/16/20 09:20 09:20 WBC 6.7 RBC 5.25 Hgb 15.7 Hct 46.6 MCV 88.8 MCH 29.9 MCHC 33.7 RDW 12.6 Plt Count 206 MPV 10.0 Immature Gran % (Auto) 0.1 Neut % (Auto) 76.4 H Lymph % (Auto) 16.4 L [place] % (Auto) 5.8 Eos % (Auto) 0.9 Baso % (Auto) 0.4 Lymph # (Auto) 1.1 L [place] # (Auto) 0.4 Eos # (Auto) 0.1 Baso # (Auto) 0.0 Abs Immat Gran (auto) 0.01 Absolute Neuts (auto) 5.1 Absolute Nucleated RBC 0.000 Nucleated RBC % (auto) 0.0 Sodium 139 Potassium 4.2 Chloride 105 Carbon Dioxide 24 Anion Gap 14 BUN 14 Creatinine 0.95 Estim Creat Clear Calc 82.5 Estimated GFR > 60 Fasting Glucose 131 H Calcium 9.0 Total Bilirubin 0.5 AST 15 ALT 10 Alkaline Phosphatase 102 Total Protein 7.8 Albumin 4.5 Urine Color Urine Appearance Urine pH Ur Specific [place] Urine Protein Urine Glucose (UA) Urine Ketones Urine Blood Urine Nitrite Ur Leukocyte Esterase Urine Opiates Screen Ur Barbiturates Screen Ur Phencyclidine Scrn Ur Amphetamines Screen U Benzodiazepines Scrn Urine Cocaine Screen U Marijuana (THC) Screen COVID-19 ([facility]IO[facility]) COVID-19 Clin Com Airway Mallampati Class: II TM Dist: >3cm Neck ROM: Full Assessment and Plan Assessment Anesthesia Assessment: Anesthesia Plan Discussed and Chart Reviewed Final Anesthetic Review NPO: Yes ASA Class: II Final Preanesthetic Review: No Changes in Pt Med Stat, Meds/Allgs Chart Reviewed, Consent Obtained/Reviewed and Anes Risks/Benef Reviewed Patient Risk: Low Procedure Risk: Low Assessment/Block/Sedation in SS: Assess/Block/Sedation-SS Anesthetic Plan Anesthetic Plan: GA Disposition: Standard PACU
--- NOTE | 2020-06-17 08:16 | HO.ANESPROP2 ---
[facility] Active Problems Active Problems: All Active Problems (Updated 06/15/20 @ 15:18 by Margaret Morrell RN) Anxiety (Acute) Major depressive disorder with psychotic features (Acute) a Past Medical History Medical History Anxiety Depression Social History Social History Household Members: Spouse Housing: House Do you presently have visiting nurse or other home services: No Alcohol intake: never Smoking Status: Never smoker Smoked in Last 30 Days: No Patient Interested in Nicotine Replacement: No Patient Given Instructions on How to Stop Smoking: No Second Hand Smoke Exposure: No Use of substances other than those prescribed or required for medical reasons: Yes Substance Use Type: Marijuana Substance Use Frequency: Monthly Last Used Substance: Weeks (ago) Currently Displaying Signs/Symptoms of Drug Intoxication Withdrawal: No Any prior treatment program specific to substance use: No Have you been hit, kicked, punched, or otherwise hurt by someone within the past year? If so, by whom?: No Do you feel safe in your current relationship?: Yes Is there a partner from a previous relationship who is making you feel unsafe now?: No Are you made to feel afraid or neglected: No Oriental Orthodox Healthcare Practices: jewish Advance Directives: No Advance Directives Information Provided: No Do you have thoughts of harming others: None Do you have a plan to hurt others: No Plan Recently lost weight without trying: No service: No Sexual orientation: Straight/Heterosexual Meds Allergies Allergy/AdvReac Type Severity Reaction Status Date / Time morphine Allergy Unknown Verified 06/15/20 10:49 Active Medications: Current Medications Generic Name Dose Route Start Last Admin Trade Name Freq PRN Reason Stop Dose Admin Acetaminophen 650 mg 06/15/20 13:33 Acetaminophen 325 Mg Tablet PO Q6H PRN Headache/Pain Mild Scale (1-3) Acetaminophen 650 mg 06/15/20 14:36 Acetaminophen 325 Mg Tablet PO Q6H PRN Headache/Pain Mild Scale (1-3) Al Hydroxide/Mg Hydroxide 30 ml 06/15/20 13:33 Magnesium Hydrox/Alum Hydrox 30 Ml Oral.Susp PO Q6H PRN Heartburn/Nausea Al Hydroxide/Mg Hydroxide 30 ml 06/15/20 14:36 Magnesium Hydrox/Alum Hydrox 30 Ml Oral.Susp PO Q6H PRN Heartburn/Nausea Clonidine HCl 0.1 mg 06/15/20 09:50 06/17/20 02:50 Clonidine Hcl 0.1 Mg Tablet PO 0.1 mg BID PRN Administration anxiety Protocol Fluoxetine HCl 60 mg 06/17/20 06:00 Fluoxetine Hcl 20 Mg Capsule PO DAILY SMITA Gabapentin 300 mg 06/15/20 21:00 06/16/20 17:24 Gabapentin 300 Mg Capsule PO Not Given BID SMITA Hydroxyzine HCl 25 mg 06/15/20 13:33 06/17/20 02:50 Hydroxyzine Hcl 25 Mg Tablet PO 25 mg BEDTIME PRN Administration Anxiety Hydroxyzine HCl 25 mg 06/15/20 14:36 Hydroxyzine Hcl 25 Mg Tablet PO BEDTIME PRN Anxiety Lactated Ringer's 1,000 mls @ 20 mls/hr 06/17/20 08:00 Lr IVCONT .Q24H SMITA Latanoprost 1 drop 06/16/20 14:00 06/16/20 15:14 Latanoprost 0.005 % Ophth Jannette 2.5 Ml Drops EYE-RIGHT 1 drop DAILY@1400 SMITA Administration Lorazepam 0.5 mg 06/15/20 12:00 06/16/20 19:38 Lorazepam 0.5 Mg Tablet PO 0.5 mg BID SMITA Administration Lorazepam 0.5 mg 06/16/20 09:49 06/17/20 06:27 Lorazepam 0.5 Mg Tablet PO 0.5 mg Q4H PRN Administration Anxiety Magnesium Hydroxide 30 ml 06/15/20 13:33 Milk Of Magnesia 30 Ml Oral.Susp PO DAILY PRN Constipation Magnesium Hydroxide 30 ml 06/15/20 14:36 Milk Of Magnesia 30 Ml Oral.Susp PO DAILY PRN Constipation Risperidone 2 mg 06/15/20 21:00 06/16/20 19:38 Risperidone 2 Mg Tablet PO 2 mg BEDTIME SMITA Administration Trazodone HCl 50 mg 06/15/20 13:33 06/17/20 02:50 Trazodone Hcl 50 Mg Tablet PO 50 mg BEDTIME PRN Administration Insomnia Trazodone HCl 50 mg 06/15/20 14:36 Trazodone Hcl 50 Mg Tablet PO BEDTIME PRN Insomnia Home Medications Medication Instructions Recorded Confirmed Last Taken Type clonidine HCl 1 tab PO BID PRN 06/15/20 06/15/20 Unknown History fluoxetine 3 cap PO QAM 06/15/20 06/15/20 Unknown History gabapentin 1 tab PO TID 06/15/20 06/15/20 Unknown History latanoprost 1 drp OPHTHALMIC (EYE) CONT 06/15/20 06/15/20 Unknown History lorazepam 1 tab PO BID 06/15/20 06/15/20 Unknown History risperidone 1 tab PO BEDTIME 06/15/20 06/15/20 Unknown History Exam Exam Date and Time: June 17, 2020 0816 Height,Weight and Vital Signs: Height 5 ft 11 in Weight 80.4 kg Last Vital Signs Temp 98.6 F 06/17/20 06:25 Pulse 103 H 06/17/20 06:25 Resp 16 06/17/20 06:25 BP 120/85 06/17/20 06:25 Pulse Ox 95 06/17/20 06:00 Pertinent Lab Results Pertinent Lab Results: Laboratory Tests 06/15/20 06/15/20 06/15/20 09:30 09:30 09:39 WBC RBC Hgb Hct MCV MCH MCHC RDW Plt Count MPV Immature Gran % (Auto) Neut % (Auto) Lymph % (Auto) [place] % (Auto) Eos % (Auto) Baso % (Auto) Lymph # (Auto) [place] # (Auto) Eos # (Auto) Baso # (Auto) Abs Immat Gran (auto) Absolute Neuts (auto) Absolute Nucleated RBC Nucleated RBC % (auto) Sodium Potassium Chloride Carbon Dioxide Anion Gap BUN Creatinine Estim Creat Clear Calc Estimated GFR Fasting Glucose Calcium Total Bilirubin AST ALT Alkaline Phosphatase Total Protein Albumin Urine Color YELLOW Urine Appearance CLEAR Urine pH 5.5 Ur Specific [place] >= 1.030 H Urine Protein NEG Urine Glucose (UA) NEG Urine Ketones NEG Urine Blood NEG Urine Nitrite NEG Ur Leukocyte Esterase NEG Urine Opiates Screen Not Detected Ur Barbiturates Screen Not Detected Ur Phencyclidine Scrn Not Detected Ur Amphetamines Screen Not Detected U Benzodiazepines Scrn Not Detected Urine Cocaine Screen Not Detected U Marijuana (THC) Screen POSITIVE H COVID-19 ([facility]) Negative COVID-19 Clin Com See Note 06/16/20 06/16/20 09:20 09:20 WBC 6.7 RBC 5.25 Hgb 15.7 Hct 46.6 MCV 88.8 MCH 29.9 MCHC 33.7 RDW 12.6 Plt Count 206 MPV 10.0 Immature Gran % (Auto) 0.1 Neut % (Auto) 76.4 H Lymph % (Auto) 16.4 L [place] % (Auto) 5.8 Eos % (Auto) 0.9 Baso % (Auto) 0.4 Lymph # (Auto) 1.1 L [place] # (Auto) 0.4 Eos # (Auto) 0.1 Baso # (Auto) 0.0 Abs Immat Gran (auto) 0.01 Absolute Neuts (auto) 5.1 Absolute Nucleated RBC 0.000 Nucleated RBC % (auto) 0.0 Sodium 139 Potassium 4.2 Chloride 105 Carbon Dioxide 24 Anion Gap 14 BUN 14 Creatinine 0.95 Estim Creat Clear Calc 82.5 Estimated GFR > 60 Fasting Glucose 131 H Calcium 9.0 Total Bilirubin 0.5 AST 15 ALT 10 Alkaline Phosphatase 102 Total Protein 7.8 Albumin 4.5 Urine Color Urine Appearance Urine pH Ur Specific [place] Urine Protein Urine Glucose (UA) Urine Ketones Urine Blood Urine Nitrite Ur Leukocyte Esterase Urine Opiates Screen Ur Barbiturates Screen Ur Phencyclidine Scrn Ur Amphetamines Screen U Benzodiazepines Scrn Urine Cocaine Screen U Marijuana (THC) Screen COVID-19 ([facility]) COVID-19 Clin Com Airway Mallampati Class: II TM Dist: >3cm Neck ROM: Full Heart: RRR Lungs: CTA
--- NOTE | 2020-06-17 08:21 | MHC.SHP ---
Pre-Procedural Eval Section A The patient is an INPATIENT: Yes Changes since office visit: Yes Patient answered all questions; No Cold of Flu in the past 2 weeks, No New Medical Problems and No Changes in Medication The History & Physical has been completed within 30 days and I have reviewed it.: Yes Section B Chief Complaint: SEVERE DEPRESION Allergies: Allergies Allergy/AdvReac Type Severity Reaction Status Date / Time morphine Allergy Unknown Verified 06/15/20 10:49 Plan I have reviewed the history and physical and performed a pertinent physical examination on my patient. No changes have occurred unless specified.
[2020-06-17] MEDS: Gabapentin 300 MG CAPSULE PO ×2 (09:58→20:13)
[2020-06-17] MEDS: FLUoxetine HCl 20 MG CAPSULE 60 MG PO ×2 (09:59→10:09)
--- NOTE | 2020-06-17 11:11 | HO.PSYCHPN ---
Subjective Subjective Date of Service: 06/17/20 Reason For Visit: SEVERE DEPRESION Interim History: The patient had his first ECT today AM without any complications or side effects, still anxious. He slept poorly last night and he has noticed more anxiety since his Gabapentin was lowered. NO safety concerns. Medication Compliance: Yes Side effects from medications: No Attending Groups: Intermittent Review of Systems Acute medical concerns: No Medical Review of Systems: unchanged Mental Status Exam Mental Status Exam Patient Appearance: Well Grooomed and Appropriate Patient Orientation: Person, Place and Situation Level of Consciousness: Appropriate Patient Behavior: Appropriate Mood Description: Calm and Constricted Affect Description: Depressed Patient Cognition Impaired: No Ability to Follow Directions: Good Speech Pattern: Clear Memory Description: Intact Hallucinations: None Delusions: Not Present Thought Process: Intact Thought Content: positive for Intact Judgement: Fair Diagnostics Vital Signs (24Hr): Vital Signs - 24 hr 06/16/20 19:37 06/16/20 20:05 06/17/20 02:45 Temperature 98.1 F Pulse Rate 75 73 93 Respiratory Rate 16 Blood Pressure 158/98 H 151/86 H 123/88 Pulse Oximetry 96 06/17/20 02:50 06/17/20 06:00 06/17/20 06:25 Temperature 98.6 F 98.6 F Pulse Rate 93 103 H 103 H Respiratory Rate 16 16 Blood Pressure 123/88 120/85 120/85 Pulse Oximetry 95 06/17/20 08:38 06/17/20 08:43 06/17/20 08:48 Temperature 97.4 F Pulse Rate 62 95 94 Respiratory Rate 17 17 16 Blood Pressure 137/87 145/91 H 155/89 H Pulse Oximetry 99 96 96 06/17/20 08:53 06/17/20 09:08 06/17/20 10:35 Temperature 98.5 F 98.5 F Pulse Rate 96 99 70 Respiratory Rate 17 17 Blood Pressure 165/99 H 151/97 H 125/81 Pulse Oximetry 96 96 Body Mass Index 24.7 Labs Results: 06/16/20 09:20 06/16/20 09:20 Labs: Laboratory Results - last 48 hr 06/16/20 06/16/20 09:20 09:20 WBC 6.7 RBC 5.25 Hgb 15.7 Hct 46.6 MCV 88.8 MCH 29.9 MCHC 33.7 RDW 12.6 Plt Count 206 MPV 10.0 Immature Gran % (Auto) 0.1 Neut % (Auto) 76.4 H Lymph % (Auto) 16.4 L [place] % (Auto) 5.8 Eos % (Auto) 0.9 Baso % (Auto) 0.4 Lymph # (Auto) 1.1 L [place] # (Auto) 0.4 Eos # (Auto) 0.1 Baso # (Auto) 0.0 Abs Immat Gran (auto) 0.01 Absolute Neuts (auto) 5.1 Absolute Nucleated RBC 0.000 Nucleated RBC % (auto) 0.0 Sodium 139 Potassium 4.2 Chloride 105 Carbon Dioxide 24 Anion Gap 14 BUN 14 Creatinine 0.95 Estim Creat Clear Calc 82.5 Estimated GFR > 60 Fasting Glucose 131 H Calcium 9.0 Total Bilirubin 0.5 AST 15 ALT 10 Alkaline Phosphatase 102 Total Protein 7.8 Albumin 4.5 Imaging Radiology Impressions: ITS Impressions Head CT 06/16/20 13:20 IMPRESSION: No acute intracranial process seen Medications Medications Current Medications Generic Name Dose Route Start Last Admin Trade Name Freq PRN Reason Stop Dose Admin Acetaminophen 650 mg 06/15/20 13:33 Acetaminophen 325 Mg Tablet PO Q6H PRN Headache/Pain Mild Scale (1-3) Acetaminophen 650 mg 06/15/20 14:36 Acetaminophen 325 Mg Tablet PO Q6H PRN Headache/Pain Mild Scale (1-3) Acetaminophen 650 mg 06/17/20 08:18 Acetaminophen 325 Mg Tablet PO ONCE PRN Pain, Mild (Pain Scale 1-3) Al Hydroxide/Mg Hydroxide 30 ml 06/15/20 13:33 Magnesium Hydrox/Alum Hydrox 30 Ml Oral.Susp PO Q6H PRN Heartburn/Nausea Al Hydroxide/Mg Hydroxide 30 ml 06/15/20 14:36 Magnesium Hydrox/Alum Hydrox 30 Ml Oral.Susp PO Q6H PRN Heartburn/Nausea Clonidine HCl 0.1 mg 06/15/20 09:50 06/17/20 10:35 Clonidine Hcl 0.1 Mg Tablet PO 0.1 mg BID PRN Administration anxiety Protocol Fluoxetine HCl 60 mg 06/17/20 06:00 06/17/20 10:09 Fluoxetine Hcl 20 Mg Capsule PO 60 mg DAILY SMITA Administration Gabapentin 300 mg 06/15/20 21:00 06/17/20 09:58 Gabapentin 300 Mg Capsule PO 300 mg BID SMITA Administration Hydroxyzine HCl 25 mg 06/15/20 13:33 06/17/20 02:50 Hydroxyzine Hcl 25 Mg Tablet PO 25 mg BEDTIME PRN Administration Anxiety Hydroxyzine HCl 25 mg 06/15/20 14:36 Hydroxyzine Hcl 25 Mg Tablet PO BEDTIME PRN Anxiety Lactated Ringer's 1,000 mls @ 20 mls/hr 06/17/20 08:00 06/17/20 10:10 Lr IVCONT Not Given .Q24H SMITA Latanoprost 1 drop 06/16/20 14:00 06/16/20 15:14 Latanoprost 0.005 % Ophth Jannette 2.5 Ml Drops EYE-RIGHT 1 drop DAILY@1400 SMITA Administration Lorazepam 0.5 mg 06/15/20 12:00 06/17/20 09:58 Lorazepam 0.5 Mg Tablet PO 0.5 mg BID SMITA Administration Lorazepam 0.5 mg 06/16/20 09:49 06/17/20 06:27 Lorazepam 0.5 Mg Tablet PO 0.5 mg Q4H PRN Administration Anxiety Magnesium Hydroxide 30 ml 06/15/20 13:33 Milk Of Magnesia 30 Ml Oral.Susp PO DAILY PRN Constipation Magnesium Hydroxide 30 ml 06/15/20 14:36 Milk Of Magnesia 30 Ml Oral.Susp PO DAILY PRN Constipation Risperidone 2 mg 06/15/20 21:00 06/16/20 19:38 Risperidone 2 Mg Tablet PO 2 mg BEDTIME SMITA Administration Trazodone HCl 50 mg 06/15/20 13:33 06/17/20 02:50 Trazodone Hcl 50 Mg Tablet PO 50 mg BEDTIME PRN Administration Insomnia Trazodone HCl 50 mg 06/15/20 14:36 Trazodone Hcl 50 Mg Tablet PO BEDTIME PRN Insomnia Allergies Allergies Allergy/AdvReac Type Severity Reaction Status Date / Time morphine Allergy Unknown Verified 06/15/20 10:49 Assessment & Plan Plan: Keep same treatment ECT on Saturday and discharge if no complications Greater than 50% of the session was spent on counseling and/or coordination of care Patient educated on: diagnosis, medication risk/benefits, ECT and therapeutic strategies Informed Consent: understands Reason for contiued inpatient stay Substantial Risk for: inability to function
[2020-06-17] MEDS: Latanoprost 0.005 % Ophth Sol 2.5 ML DROPS 1 DROP EYE-RIGHT (14:22)
[2020-06-17] MEDS: Magnesium Hydrox/Alum Hydrox 30 ML ORAL.SUSP PO (17:33)
[2020-06-17] MEDS: risperiDONE 2 MG TABLET PO (20:13)
--- NOTE | 2020-06-17 21:31 | HO.ECTPROC ---
ECT Procedure Note Diagnosis/Treatment Date of Service: 06/17/20 Diagnosis: Major Depressive Disorder Current Treatment Number: 1 Treatment: Series Interval Clinical Notes: here for ect number [address] huang note ECT Settings Device: THYMATRON DGx Electrode Placement: Right Unilateral Program/Pulse Width: 0.50 Seizure Duration By EEG (in seconds): 69 Medications Administration General Anesthetic: Etomidate (12) Muscle Relaxant: Succinylcholine (100) Ancillary Medications Analgesics: Torodol - Pre ECT Anti-emetics: Zofran - Pre ECT Miscillaneous Medications: Propofol (30mg) Airway Management Airway Management: Bag Mask Ventilation Treatment Recommendations No Changes Recommended: No change Pt Tolerated Procedure w/o Issue: Yes
[2020-06-18 06:00] VITALS: BP 133/68; PULSE 72; TEMP 36.9
[2020-06-18] MEDS: Gabapentin 300 MG CAPSULE PO ×2 (08:20→20:09)
[2020-06-18] MEDS: FLUoxetine HCl 20 MG CAPSULE 60 MG PO (08:20)
[2020-06-18] MEDS: LORazepam 0.5 MG TABLET PO ×5 (08:21→20:18)
--- NOTE | 2020-06-18 15:37 | HO.PSYCHPN ---
Subjective Subjective Date of Service: 06/18/20 Reason For Visit: SEVERE DEPRESION Subjective Notes: 3 Day Interim History: Plans discharge on 06/20 after ECT. Reports feeling bored however with some mood improvement with treatment. Reports medication regime to be helpful. Anxiety is still present, sleep is fair . Struggling with the environment as it is too institutional . Medication Compliance: Yes Side effects from medications: No Review of Systems Review of Systems Yes all other systems are reviewed and are negative (denies) Psychiatric: Reports anxiety, Reports depression and Reports irritability Mental Status Exam Mental Status Exam Patient Appearance: Appropriate Patient Orientation: Person, Place, Time and Situation Level of Consciousness: Alert Patient Behavior: Appropriate Mood Description: Constricted Affect Description: Constricted Patient Cognition Impaired: No Ability to Follow Directions: Good Speech Pattern: Spontaneous Speech Memory Description: Episodic Impaired Hallucinations: None Delusions: Not Present Thought Process: Intact Thought Content: positive for Intact, positive for [place] and positive for Circumstantial Depressive Symptoms: Increased Anxiety, Difficulty Sleeping, Hopelessness, Unhappiness and Thoughts of /Suicide (denies today) Judgement: Good Diagnostics Vital Signs (24Hr): Vital Signs - 24 hr 06/17/20 16:00 06/17/20 18:00 06/18/20 06:00 Temperature 98.4 F 98.4 F 98.4 F Pulse Rate 75 75 72 Respiratory Rate 16 16 Blood Pressure 107/67 107/67 133/68 Pulse Oximetry 93 93 Body Mass Index 24.7 Labs Results: 06/16/20 09:20 06/16/20 09:20 Imaging Radiology Impressions: ITS Impressions Head CT 06/16/20 13:20 IMPRESSION: No acute intracranial process seen Medications Medications Current Medications Generic Name Dose Route Start Last Admin Trade Name Freq PRN Reason Stop Dose Admin Acetaminophen 650 mg 06/15/20 13:33 Acetaminophen 325 Mg Tablet PO Q6H PRN Headache/Pain Mild Scale (1-3) Acetaminophen 650 mg 06/15/20 14:36 Acetaminophen 325 Mg Tablet PO Q6H PRN Headache/Pain Mild Scale (1-3) Acetaminophen 650 mg 06/17/20 08:18 Acetaminophen 325 Mg Tablet PO ONCE PRN Pain, Mild (Pain Scale 1-3) Al Hydroxide/Mg Hydroxide 30 ml 06/15/20 13:33 06/17/20 17:33 Magnesium Hydrox/Alum Hydrox 30 Ml Oral.Susp PO 30 ml Q6H PRN Administration Heartburn/Nausea Al Hydroxide/Mg Hydroxide 30 ml 06/15/20 14:36 Magnesium Hydrox/Alum Hydrox 30 Ml Oral.Susp PO Q6H PRN Heartburn/Nausea Clonidine HCl 0.1 mg 06/15/20 09:50 06/17/20 10:35 Clonidine Hcl 0.1 Mg Tablet PO 0.1 mg BID PRN Administration anxiety Protocol Fluoxetine HCl 60 mg 06/17/20 06:00 06/18/20 08:20 Fluoxetine Hcl 20 Mg Capsule PO 60 mg DAILY SMITA Administration Gabapentin 300 mg 06/15/20 21:00 06/18/20 08:20 Gabapentin 300 Mg Capsule PO 300 mg BID SMITA Administration Hydroxyzine HCl 25 mg 06/15/20 13:33 06/17/20 20:13 Hydroxyzine Hcl 25 Mg Tablet PO 25 mg BEDTIME PRN Administration Anxiety Hydroxyzine HCl 25 mg 06/15/20 14:36 Hydroxyzine Hcl 25 Mg Tablet PO BEDTIME PRN Anxiety Lactated Ringer's 1,000 mls @ 20 mls/hr 06/17/20 08:00 06/18/20 08:29 Lr IVCONT Not Given .Q24H SMITA Latanoprost 1 drop 06/16/20 14:00 06/17/20 14:22 Latanoprost 0.005 % Ophth Jannette 2.5 Ml Drops EYE-RIGHT 1 drop DAILY@1400 SMITA Administration Lorazepam 0.5 mg 06/15/20 12:00 06/18/20 08:21 Lorazepam 0.5 Mg Tablet PO 0.5 mg BID SMITA Administration Lorazepam 0.5 mg 06/16/20 09:49 06/18/20 14:41 Lorazepam 0.5 Mg Tablet PO 0.5 mg Q4H PRN Administration Anxiety Magnesium Hydroxide 30 ml 06/15/20 13:33 Milk Of Magnesia 30 Ml Oral.Susp PO DAILY PRN Constipation Magnesium Hydroxide 30 ml 06/15/20 14:36 Milk Of Magnesia 30 Ml Oral.Susp PO DAILY PRN Constipation Risperidone 2 mg 06/15/20 21:00 06/17/20 20:13 Risperidone 2 Mg Tablet PO 2 mg BEDTIME SMITA Administration Trazodone HCl 50 mg 06/15/20 13:33 06/17/20 20:13 Trazodone Hcl 50 Mg Tablet PO 50 mg BEDTIME PRN Administration Insomnia Trazodone HCl 50 mg 06/15/20 14:36 Trazodone Hcl 50 Mg Tablet PO BEDTIME PRN Insomnia Allergies Allergies Allergy/AdvReac Type Severity Reaction Status Date / Time morphine Allergy Unknown Verified 06/15/20 10:49 Assessment & Plan Assessment & Plan (1) Major depressive disorder with psychotic features: Status: Acute Code(s): F32.3 - Major depressive disorder, single episode, severe with psychotic features (2) Anxiety: Status: Acute Code(s): F41.9 - Anxiety disorder, unspecified Greater than 50% of the session was spent on counseling and/or coordination of care Reason for contiued inpatient stay Substantial Risk for: rapid decompensation
[2020-06-18] MEDS: Latanoprost 0.005 % Ophth Sol 2.5 ML DROPS 1 DROP EYE-RIGHT (15:40)
[2020-06-18 18:00] VITALS: BP 121/81; PULSE 73; RESP 18; TEMP 36.7; O2SAT 97
[2020-06-18] MEDS: risperiDONE 2 MG TABLET PO (20:09)
[2020-06-18] MEDS: Milk of Magnesia 30 ML ORAL.SUSP PO (20:12)
[2020-06-18] MEDS: traZODone HCL 50 MG TABLET PO (20:12)
[2020-06-18] MEDS: hydrOXYzine HCL 25 MG TABLET PO (20:12)
[2020-06-18 20:14] VITALS: BP 123/77; PULSE 73
[2020-06-18] MEDS: cloNIDine HCL 0.1 MG TABLET PO (20:14)
[2020-06-19 06:00] VITALS: BP 137/81; PULSE 70; RESP 16; TEMP 36.1; O2SAT 97
[2020-06-19] MEDS: LORazepam 0.5 MG TABLET PO ×4 (06:45→21:22)
[2020-06-19] MEDS: FLUoxetine HCl 20 MG CAPSULE 60 MG PO (08:06)
[2020-06-19] MEDS: Gabapentin 300 MG CAPSULE PO (08:06)
[2020-06-19 08:10] VITALS: BP 126/70; PULSE 68
[2020-06-19] MEDS: cloNIDine HCL 0.1 MG TABLET PO ×2 (08:10→21:32)
--- NOTE | 2020-06-19 08:32 | HO.PSYCHPN ---
Subjective Subjective Date of Service: 06/19/20 Reason For Visit: SEVERE DEPRESION Subjective Notes: 3 Day Interim History: Continues to report feeling bored. TDN to 06/20/20. Pt planning discharge after ECT. No questions or concerns when we checked in today. Medication Compliance: Yes Side effects from medications: No Review of Systems Psychiatric: Reports depression Mental Status Exam Mental Status Exam Patient Orientation: Person, Place and Time Level of Consciousness: Alert Patient Behavior: Talkative and Cooperative Mood Description: Withdrawn Affect Description: Constricted Patient Cognition Impaired: No Ability to Follow Directions: Good Speech Pattern: Spontaneous Speech Memory Description: Intact and Episodic Impaired Hallucinations: None Delusions: Not Present Thought Process: Intact Thought Content: positive for Intact Depressive Symptoms: Increased Anxiety and Increased Irritability Judgement: Good Diagnostics Vital Signs (24Hr): Vital Signs - 24 hr 06/18/20 18:00 06/18/20 20:14 06/19/20 06:00 Temperature 98.1 F 97.0 F Pulse Rate 73 73 70 Respiratory Rate 18 16 Blood Pressure 121/81 123/77 137/81 Pulse Oximetry 97 97 06/19/20 08:10 Temperature Pulse Rate 68 Respiratory Rate Blood Pressure 126/70 Pulse Oximetry Body Mass Index 24.7 Labs Results: 06/16/20 09:20 06/16/20 09:20 Imaging Radiology Impressions: ITS Impressions Head CT 06/16/20 13:20 IMPRESSION: No acute intracranial process seen Medications Medications Current Medications Generic Name Dose Route Start Last Admin Trade Name Freq PRN Reason Stop Dose Admin Acetaminophen 650 mg 06/15/20 13:33 Acetaminophen 325 Mg Tablet PO Q6H PRN Headache/Pain Mild Scale (1-3) Acetaminophen 650 mg 06/15/20 14:36 Acetaminophen 325 Mg Tablet PO Q6H PRN Headache/Pain Mild Scale (1-3) Acetaminophen 650 mg 06/17/20 08:18 Acetaminophen 325 Mg Tablet PO ONCE PRN Pain, Mild (Pain Scale 1-3) Al Hydroxide/Mg Hydroxide 30 ml 06/15/20 13:33 06/17/20 17:33 Magnesium Hydrox/Alum Hydrox 30 Ml Oral.Susp PO 30 ml Q6H PRN Administration Heartburn/Nausea Al Hydroxide/Mg Hydroxide 30 ml 06/15/20 14:36 Magnesium Hydrox/Alum Hydrox 30 Ml Oral.Susp PO Q6H PRN Heartburn/Nausea Clonidine HCl 0.1 mg 06/15/20 09:50 06/19/20 08:10 Clonidine Hcl 0.1 Mg Tablet PO 0.1 mg BID PRN Administration anxiety Protocol Fluoxetine HCl 60 mg 06/17/20 06:00 06/19/20 08:06 Fluoxetine Hcl 20 Mg Capsule PO 60 mg DAILY SMITA Administration Gabapentin 300 mg 06/15/20 21:00 06/19/20 08:06 Gabapentin 300 Mg Capsule PO 300 mg BID SMITA Administration Hydroxyzine HCl 25 mg 06/15/20 13:33 06/18/20 20:12 Hydroxyzine Hcl 25 Mg Tablet PO 25 mg BEDTIME PRN Administration Anxiety Hydroxyzine HCl 25 mg 06/15/20 14:36 Hydroxyzine Hcl 25 Mg Tablet PO BEDTIME PRN Anxiety Lactated Ringer's 1,000 mls @ 20 mls/hr 06/17/20 08:00 06/18/20 08:29 Lr IVCONT Not Given .Q24H SMITA Latanoprost 1 drop 06/16/20 14:00 06/18/20 15:40 Latanoprost 0.005 % Ophth Jannette 2.5 Ml Drops EYE-RIGHT 1 drop DAILY@1400 SMITA Administration Lorazepam 0.5 mg 06/15/20 12:00 06/19/20 08:07 Lorazepam 0.5 Mg Tablet PO 0.5 mg BID SMITA Administration Lorazepam 0.5 mg 06/16/20 09:49 06/19/20 06:45 Lorazepam 0.5 Mg Tablet PO 0.5 mg Q4H PRN Administration Anxiety Magnesium Hydroxide 30 ml 06/15/20 13:33 06/18/20 20:12 Milk Of Magnesia 30 Ml Oral.Susp PO 30 ml DAILY PRN Administration Constipation Magnesium Hydroxide 30 ml 06/15/20 14:36 Milk Of Magnesia 30 Ml Oral.Susp PO DAILY PRN Constipation Risperidone 2 mg 06/15/20 21:00 06/18/20 20:09 Risperidone 2 Mg Tablet PO 2 mg BEDTIME SMITA Administration Trazodone HCl 50 mg 06/15/20 13:33 06/18/20 20:12 Trazodone Hcl 50 Mg Tablet PO 50 mg BEDTIME PRN Administration Insomnia Trazodone HCl 50 mg 06/15/20 14:36 Trazodone Hcl 50 Mg Tablet PO BEDTIME PRN Insomnia Allergies Allergies Allergy/AdvReac Type Severity Reaction Status Date / Time morphine Allergy Unknown Verified 06/15/20 10:49 Assessment & Plan Greater than 50% of the session was spent on counseling and/or coordination of care Reason for contiued inpatient stay Substantial Risk for: rapid decompensation
[2020-06-19] MEDS: Latanoprost 0.005 % Ophth Sol 2.5 ML DROPS 1 DROP EYE-RIGHT (15:10)
[2020-06-19] MEDS: Magnesium Hydrox/Alum Hydrox 30 ML ORAL.SUSP PO (17:43)
[2020-06-19 18:00] VITALS: BP 147/82; PULSE 89; TEMP 36.6
[2020-06-19] MEDS: risperiDONE 2 MG TABLET PO (21:23)
[2020-06-19 21:32] VITALS: BP 123/88; PULSE 87
[2020-06-19] MEDS: hydrOXYzine HCL 25 MG TABLET PO (21:32)
[2020-06-19] MEDS: traZODone HCL 50 MG TABLET PO (21:32)
--- NOTE | 2020-06-20 00:42 | PC.NURSE ---
santa was very anxious and upset with the hold on his scheduled and prn Ativan. Patient was speaking with this advertising writer around 1999 on 06/19/2020 when he asked for his HS medications and was informed that his Gabapentin and Ativan were both on hold due to ECT in the a.m. on 06/20/20. Patient insisted that he would not be able to sleep or relax. This advertising writer put in a [place] text to Dr. Perla, after the covering person Galina Quiroz, the physicain who wrote the order texted this advertising writer to check with the physician who wrote the order. Eventually orders were obtained to reinstate the Ativan, both the scheduled and prn. Patient was informed and he was apologetic for getting upset.
[2020-06-20 06:25] VITALS: BP 131/63; PULSE 77; RESP 16; TEMP 36.8; O2SAT 97
[2020-06-20 06:59] VITALS: BP 134/85; PULSE 81; RESP 17; TEMP 36.1; O2SAT 96; BMI 25.1
--- NOTE | 2020-06-20 07:33 | P.CONAN_ITS ---
[facility] Active Problems Active Problems: All Active Problems (Updated 06/15/20 @ 15:18 by Margaret alvarez RN) Anxiety (Acute) Major depressive disorder with psychotic features (Acute) Past Medical History Medical History Anxiety Depression Social History Social History Household Members: Spouse Housing: House Do you presently have visiting nurse or other home services: No Alcohol intake: never Smoking Status: Never smoker Smoked in Last 30 Days: No Patient Interested in Nicotine Replacement: No Patient Given Instructions on How to Stop Smoking: No Second Hand Smoke Exposure: No Use of substances other than those prescribed or required for medical reasons: Yes Substance Use Type: Marijuana Substance Use Frequency: Monthly Last Used Substance: Weeks (ago) Currently Displaying Signs/Symptoms of Drug Intoxication Withdrawal: No Any prior treatment program specific to substance use: No Have you been hit, kicked, punched, or otherwise hurt by someone within the past year? If so, by whom?: No Do you feel safe in your current relationship?: Yes Is there a partner from a previous relationship who is making you feel unsafe now?: No Are you made to feel afraid or neglected: No [facility] Practices: [facility]on Advance Directives: No Advance Directives Information Provided: No Do you have thoughts of harming others: None Do you have a plan to hurt others: No Plan Recently lost weight without trying: No service: No Sexual orientation: Straight/Heterosexual Meds Allergies Allergy/AdvReac Type Severity Reaction Status Date / Time morphine Allergy Unknown Verified 06/15/20 10:49 Active Medications: Current Medications Generic Name Dose Route Start Last Admin Trade Name Freq PRN Reason Stop Dose Admin Acetaminophen 650 mg 06/15/20 13:33 Acetaminophen 325 Mg Tablet PO Q6H PRN Headache/Pain Mild Scale (1-3) Acetaminophen 650 mg 06/15/20 14:36 Acetaminophen 325 Mg Tablet PO Q6H PRN Headache/Pain Mild Scale (1-3) Acetaminophen 650 mg 06/17/20 08:18 Acetaminophen 325 Mg Tablet PO ONCE PRN Pain, Mild (Pain Scale 1-3) Al Hydroxide/Mg Hydroxide 30 ml 06/15/20 13:33 06/19/20 17:43 Magnesium Hydrox/Alum Hydrox 30 Ml Oral.Susp PO 30 ml Q6H PRN Administration Heartburn/Nausea Al Hydroxide/Mg Hydroxide 30 ml 06/15/20 14:36 Magnesium Hydrox/Alum Hydrox 30 Ml Oral.Susp PO Q6H PRN Heartburn/Nausea Clonidine HCl 0.1 mg 06/15/20 09:50 06/19/20 21:32 Clonidine Hcl 0.1 Mg Tablet PO 0.1 mg BID PRN Administration anxiety Protocol Fluoxetine HCl 60 mg 06/17/20 06:00 06/19/20 08:06 Fluoxetine Hcl 20 Mg Capsule PO 60 mg DAILY SMITA Administration Gabapentin 300 mg 06/15/20 21:00 06/19/20 08:06 Gabapentin 300 Mg Capsule PO 300 mg BID SIMTA Administration Hydroxyzine HCl 25 mg 06/15/20 13:33 06/18/20 20:12 Hydroxyzine Hcl 25 Mg Tablet PO 25 mg BEDTIME PRN Administration Anxiety Hydroxyzine HCl 25 mg 06/15/20 14:36 06/19/20 21:32 Hydroxyzine Hcl 25 Mg Tablet PO 25 mg BEDTIME PRN Administration Anxiety Lactated Ringer's 1,000 mls @ 20 mls/hr 06/17/20 08:00 06/19/20 09:57 Lr IVCONT Not Given .Q24H SMITA Latanoprost 1 drop 06/16/20 14:00 06/19/20 15:10 Latanoprost 0.005 % Ophth Jannette 2.5 Ml Drops EYE-RIGHT 1 drop DAILY@1400 SMITA Administration Lorazepam 0.5 mg 06/15/20 12:00 06/19/20 21:22 Lorazepam 0.5 Mg Tablet PO 0.5 mg BID SMITA Administration Lorazepam 0.5 mg 06/16/20 09:49 06/19/20 16:10 Lorazepam 0.5 Mg Tablet PO 0.5 mg Q4H PRN Administration Anxiety Magnesium Hydroxide 30 ml 06/15/20 13:33 06/18/20 20:12 Milk Of Magnesia 30 Ml Oral.Susp PO 30 ml DAILY PRN Administration Constipation Magnesium Hydroxide 30 ml 06/15/20 14:36 Milk Of Magnesia 30 Ml Oral.Susp PO DAILY PRN Constipation Risperidone 2 mg 06/15/20 21:00 06/19/20 21:23 Risperidone 2 Mg Tablet PO 2 mg BEDTIME SMITA Administration Trazodone HCl 50 mg 06/15/20 13:33 06/19/20 21:32 Trazodone Hcl 50 Mg Tablet PO 50 mg BEDTIME PRN Administration Insomnia Trazodone HCl 50 mg 06/15/20 14:36 Trazodone Hcl 50 Mg Tablet PO BEDTIME PRN Insomnia Home Medications Medication Instructions Recorded Confirmed Last Taken Type clonidine HCl 1 tab PO BID PRN 06/15/20 06/15/20 Unknown History fluoxetine 3 cap PO QAM 06/15/20 06/15/20 Unknown History gabapentin 1 tab PO TID 06/15/20 06/15/20 Unknown History latanoprost 1 drp OPHTHALMIC (EYE) CONT 06/15/20 06/15/20 Unknown History lorazepam 1 tab PO BID 06/15/20 06/15/20 Unknown History risperidone 1 tab PO BEDTIME 06/15/20 06/15/20 Unknown History Exam Exam Date and Time: June 20, 2020 0733 Height,Weight and Vital Signs: Height 5 ft 11 in Weight 81.647 kg Last Vital Signs Temp 97.0 F 06/20/20 06:59 Pulse 81 06/20/20 06:59 Resp 17 06/20/20 06:59 BP 134/85 06/20/20 06:59 Pulse Ox 96 06/20/20 06:59 Pertinent Lab Results Pertinent Lab Results: Laboratory Tests 06/15/20 06/15/20 06/15/20 09:30 09:30 09:39 WBC RBC Hgb Hct MCV MCH MCHC RDW Plt Count MPV Immature Gran % (Auto) Neut % (Auto) Lymph % (Auto) [place] % (Auto) Eos % (Auto) Baso % (Auto) Lymph # (Auto) [place] # (Auto) Eos # (Auto) Baso # (Auto) Abs Immat Gran (auto) Absolute Neuts (auto) Absolute Nucleated RBC Nucleated RBC % (auto) Sodium Potassium Chloride Carbon Dioxide Anion Gap BUN Creatinine Estim Creat Clear Calc Estimated GFR Fasting Glucose Calcium Total Bilirubin AST ALT Alkaline Phosphatase Total Protein Albumin Urine Color YELLOW Urine Appearance CLEAR Urine pH 5.5 Ur Specific [place] >= 1.030 H Urine Protein NEG Urine Glucose (UA) NEG Urine Ketones NEG Urine Blood NEG Urine Nitrite NEG Ur Leukocyte Esterase NEG Urine Opiates Screen Not Detected Ur Barbiturates Screen Not Detected Ur Phencyclidine Scrn Not Detected Ur Amphetamines Screen Not Detected U Benzodiazepines Scrn Not Detected Urine Cocaine Screen Not Detected U Marijuana (THC) Screen POSITIVE H COVID-19 ([facility]) Negative COVID-19 Clin Com See Note 06/16/20 06/16/20 09:20 09:20 WBC 6.7 RBC 5.25 Hgb 15.7 Hct 46.6 MCV 88.8 MCH 29.9 MCHC 33.7 RDW 12.6 Plt Count 206 MPV 10.0 Immature Gran % (Auto) 0.1 Neut % (Auto) 76.4 H Lymph % (Auto) 16.4 L [place] % (Auto) 5.8 Eos % (Auto) 0.9 Baso % (Auto) 0.4 Lymph # (Auto) 1.1 L [place] # (Auto) 0.4 Eos # (Auto) 0.1 Baso # (Auto) 0.0 Abs Immat Gran (auto) 0.01 Absolute Neuts (auto) 5.1 Absolute Nucleated RBC 0.000 Nucleated RBC % (auto) 0.0 Sodium 139 Potassium 4.2 Chloride 105 Carbon Dioxide 24 Anion Gap 14 BUN 14 Creatinine 0.95 Estim Creat Clear Calc 82.5 Estimated GFR > 60 Fasting Glucose 131 H Calcium 9.0 Total Bilirubin 0.5 AST 15 ALT 10 Alkaline Phosphatase 102 Total Protein 7.8 Albumin 4.5 Urine Color Urine Appearance Urine pH Ur Specific [place] Urine Protein Urine Glucose (UA) Urine Ketones Urine Blood Urine Nitrite Ur Leukocyte Esterase Urine Opiates Screen Ur Barbiturates Screen Ur Phencyclidine Scrn Ur Amphetamines Screen U Benzodiazepines Scrn Urine Cocaine Screen U Marijuana (THC) Screen COVID-19 ([facility]) COVID-19 Clin Com Airway Mallampati Class: II TM Dist: >3cm Neck ROM: Full Assessment and Plan Assessment Anesthesia Assessment: Anesthesia Plan Discussed Final Anesthetic Review NPO: Yes ASA Class: II Final Preanesthetic Review: No Changes in Pt Med Stat, Meds/Allgs Chart Reviewed, Consent Obtained/Reviewed and Anes Risks/Benef Reviewed Patient Risk: Low Procedure Risk: Low Assessment/Block/Sedation in SS: Assess/Block/Sedation-SS Anesthetic Plan Anesthetic Plan: GA Disposition: Standard PACU
--- NOTE | 2020-06-20 08:34 | HO.ECTPROC ---
ECT Procedure Note Diagnosis/Treatment Date of Service: 06/20/20 Diagnosis: Major Depressive Disorder Previous ECT Date: 06/17/20 Current Treatment Number: 2 Treatment: Series Interval Clinical Notes: PT STABLE FLAT TOLERATING TX ECT Settings Device: THYMATRON DGx Electrode Placement: Right Unilateral Program/Pulse Width: 0.50 Energy Percent: 100 Seizure Duration By EEG (in seconds): 41 Medications Administration General Anesthetic: Etomidate (12) Muscle Relaxant: Succinylcholine (100) Ancillary Medications Analgesics: Torodol - Pre ECT Anti-emetics: Zofran - Pre ECT Miscillaneous Medications: Propofol (30) Airway Management Airway Management: Bag Mask Ventilation Treatment Recommendations Electrode Placement: Right Unilateral Pt Tolerated Procedure w/o Issue: Yes
[2020-06-20] MEDS: FLUoxetine HCl 20 MG CAPSULE 60 MG PO (08:59)
[2020-06-20] MEDS: LORazepam 0.5 MG TABLET PO (08:59)
[2020-06-20] MEDS: Gabapentin 300 MG CAPSULE PO (09:00)
--- NOTE | 2020-06-20 09:54 | P.DS_ITS ---
DS: Providers Provider Date of Service: 06/20/20 Date of admission: 06/15/20 12:43 Date of discharge: 06/20/20 Primary care physician: Unknown Physician Attending physician on admission: Dave Ibrahim Consults: 06/15/20 13:33 Consult to Hospitalist Routine Consulting Provider: Hospitalist Reason For Exam: pre-OP for ECT scheduled for Saturday Attending physician on discharge: Dave Ibrahim DS: Diagnosis Discharge Diagnosis (1) Major depressive disorder with psychotic features: Status: Acute Problem details: The patient was admitted for ECT to target dysphoria and anxiety. He received 2 initial treatments with no complications and good response. (2) Anxiety: Status: Acute DS: Medications Discharge Medications Home Medications: Home Medications Medication Instructions Recorded Confirmed clonidine HCl 1 tab PO BID PRN 06/15/20 06/15/20 fluoxetine 3 cap PO QAM 06/15/20 06/15/20 gabapentin 1 tab PO TID 06/15/20 06/15/20 latanoprost 1 drp OPHTHALMIC (EYE) CONT 06/15/20 06/15/20 lorazepam 1 tab PO BID 06/15/20 06/15/20 risperidone 1 tab PO BEDTIME 06/15/20 06/15/20 Discharge Plan Discharge Discharge Medications: Continued latanoprost 0.005 % drops 1 drp ophthalmic (eye) CONT RF: 0 clonidine HCl 0.1 mg tablet 1 tab PO BID PRN (Reason: anxiety) RF: 0 gabapentin 600 mg tablet 1 tab PO TID RF: 0 risperidone 2 mg tablet 1 tab PO BEDTIME RF: 0 lorazepam 0.5 mg tablet 1 tab PO BID RF: 0 fluoxetine 20 mg capsule 3 cap PO QAM RF: 0 Discharge Orders: Discharge Order (Routine); Ordered 06/20/20 Ordered By: Dave Ibrahim Diet: advance to usual diet Activity on Discharge: As tolerated Mental Status Exam Mental Status Exam Patient Appearance: Well Grooomed Patient Orientation: Person, Place, Time and Situation Level of Consciousness: Awake Patient Behavior: Appropriate Mood Description: Calm Affect Description: Calm Patient Cognition Impaired: No Ability to Follow Directions: Good Speech Pattern: Clear Memory Description: Immediate Impaired (after ECT) Hallucinations: None Delusions: Not Present Thought Content: positive for Intact Judgement: Fair Judgement and Insight: Insight intact Data Data Completed and Pending Completed studies during hospitalization [Text1]: 06/15/20 06/15/20 06/15/20 09:30 09:30 09:39 WBC RBC Hgb Hct MCV MCH MCHC RDW Plt Count MPV Immature Gran % (Auto) Neut % (Auto) Lymph % (Auto) [place] % (Auto) Eos % (Auto) Baso % (Auto) Lymph # (Auto) [place] # (Auto) Eos # (Auto) Baso # (Auto) Abs Immat Gran (auto) Absolute Neuts (auto) Absolute Nucleated RBC Nucleated RBC % (auto) Sodium Potassium Chloride Carbon Dioxide Anion Gap BUN Creatinine Estim Creat Clear Calc Estimated GFR Fasting Glucose Calcium Total Bilirubin AST ALT Alkaline Phosphatase Total Protein Albumin Urine Color YELLOW Urine Appearance CLEAR Urine pH 5.5 Ur Specific [place] >= 1.030 H Urine Protein NEG Urine Glucose (UA) NEG Urine Ketones NEG Urine Blood NEG Urine Nitrite NEG Ur Leukocyte Esterase NEG Urine Opiates Screen Not Detected Ur Barbiturates Screen Not Detected Ur Phencyclidine Scrn Not Detected Ur Amphetamines Screen Not Detected U Benzodiazepines Scrn Not Detected Urine Cocaine Screen Not Detected U Marijuana (THC) Screen POSITIVE H COVID-19 ([facility]) Negative COVID-19 Clin Com See Note 06/16/20 06/16/20 09:20 09:20 WBC 6.7 RBC 5.25 Hgb 15.7 Hct 46.6 MCV 88.8 MCH 29.9 MCHC 33.7 RDW 12.6 Plt Count 206 MPV 10.0 Immature Gran % (Auto) 0.1 Neut % (Auto) 76.4 H Lymph % (Auto) 16.4 L [place] % (Auto) 5.8 Eos % (Auto) 0.9 Baso % (Auto) 0.4 Lymph # (Auto) 1.1 L [place] # (Auto) 0.4 Eos # (Auto) 0.1 Baso # (Auto) 0.0 Abs Immat Gran (auto) 0.01 Absolute Neuts (auto) 5.1 Absolute Nucleated RBC 0.000 Nucleated RBC % (auto) 0.0 Sodium 139 Potassium 4.2 Chloride 105 Carbon Dioxide 24 Anion Gap 14 BUN 14 Creatinine 0.95 Estim Creat Clear Calc 82.5 Estimated GFR > 60 Fasting Glucose 131 H Calcium 9.0 Total Bilirubin 0.5 AST 15 ALT 10 Alkaline Phosphatase 102 Total Protein 7.8 Albumin 4.5 Urine Color Urine Appearance Urine pH Ur Specific [place] Urine Protein Urine Glucose (UA) Urine Ketones Urine Blood Urine Nitrite Ur Leukocyte Esterase Urine Opiates Screen Ur Barbiturates Screen Ur Phencyclidine Scrn Ur Amphetamines Screen U Benzodiazepines Scrn Urine Cocaine Screen U Marijuana (THC) Screen COVID-19 ([facility]) COVID-19 Clin Com Imaging Diagnostic Imaging Impressions Head CT 06/16/20 13:20 IMPRESSION: No acute intracranial process seen DS: Summary Hospital Course Hospital Course: The patient was initially admitted for depression with psychotic features and anxiety. He was referred from Dr. Lakhani to start ECT. We scheduled ECT but before, we lowered Gabapentin to 300 mg po bid in order to minimize anticonvu lsants before the treatment. On the intake, the patient reported that he didn't understand why he was taking Neurontin, he did not see any benefit with that medication but when we lowered, he was extremely anxious and uncomfortable. Also, he disclosed that his brother suffers from MDD and he responded very well to Paxil. He was bored in the unit and he didn't attend to all groups. We had 2 se ssions of ECT without any complications, both sessions had good seizures. He reported that after that, he felt some relief. He signed a 3 day notice letter so he could be discharged on Saturday. Since there were no safety concerns, discharge planning was started. Time spent discussing smoking cessation with patient: 3 to 10 minutes Status at Discharge Cognitive/behavioral status at discharge: Cognitive intact. Functional status at discharge: independent ambulation Overall status at discharge: patient is progressing back to baseline Time Spent with Patient Time attestation: Total time spent providing and/or coordinating discharge services: Time spent: Less than 30 minutes
[2020-06-20 10:00] VITALS: BP 137/86; PULSE 84; TEMP 35.9
== END 2020-06-20 14:35 | disposition home or self-care (01) | DRG 885 ==
LOC: HO.ED 09:24 → HO.PM5 12:51
PROVIDERS: Physician Assistant; Admitting Provider Psychiatry & Neurology Psychiatry; Emergency Provider Emergency Medicine; Visit Provider Psychiatry & Neurology Psychiatry
PROC: GZB4ZZZ Other Electroconvulsive Therapy (ICD-10-PCS; CPT 90870; principal; 2020-06-17 15:00)
DX: F32.3 Major depressive disorder, single episode, severe with psychotic features (principal); F41.9 Anxiety disorder, unspecified; Z20.822 Contact with and (suspected) exposure to COVID-19; Z88.5 Allergy status to narcotic agent; Z79.899 Other long term (current) drug therapy
CPT/HCPCS: 36415; 70450; 80053; 80307; 81003; 85025; 87635; 90870; 93005; 99222; 99232; 99238; 99285; J0330; J1885; J2405

== ENCOUNTER → 2020-06-22 06:00 | Day surgery (SDC) | payer MEDICARE, SELFPAY ==
[2020-06-22] VITALS (7 sets, daily range): BP systolic 128–153; BP diastolic 80–93; PULSE 67–83; RESP 15–17; TEMP 36.1–37.5; O2SAT 95–99; BMI 33.1
--- NOTE | 2020-06-22 07:04 | P.CONAN_ITS ---
COUNT INCLUDES THE [facility] Active Problems Active Problems: All Active Problems (Updated 06/20/20 @ 09:56 by Dave pinzon) Anxiety (Acute) Major depressive disorder with psychotic features (Acute) Past Medical History Medical History Anxiety Depression Social History Social History Household Members: Spouse Housing: House Alcohol intake: never Smoking Status: Never smoker Second Hand Smoke Exposure: No Use of substances other than those prescribed or required for medical reasons: No Substance Use Type: Marijuana Advance Directives: Yes Advance Directives Information Provided: Yes Advance Directives on File: No Advance Directives Date on File: 06/22/20 Recently lost weight without trying: No service: No Sexual orientation: Straight/Heterosexual Meds Allergies Allergy/AdvReac Type Severity Reaction Status Date / Time morphine Allergy Unknown Verified 06/15/20 10:49 Home Medications Medication Instructions Recorded Confirmed Last Taken Type clonidine HCl 1 tab PO BID PRN 06/15/20 06/15/20 Unknown History fluoxetine 3 cap PO QAM 06/15/20 06/15/20 Unknown History gabapentin 1 tab PO TID 06/15/20 06/15/20 Unknown History latanoprost 1 drp OPHTHALMIC (EYE) CONT 06/15/20 06/15/20 Unknown History lorazepam 1 tab PO BID 06/15/20 06/15/20 Unknown History risperidone 1 tab PO BEDTIME 06/15/20 06/15/20 Unknown History Exam Exam Date and Time: June 22, 2020 0704 Height,Weight and Vital Signs: Height 5 ft 1.32 in Weight 80.4 kg Last Vital Signs Temp 97.0 F 06/22/20 06:43 Pulse 67 06/22/20 06:43 Resp 17 06/22/20 06:43 BP 128/85 06/22/20 06:43 Pulse Ox 97 06/22/20 06:43 Airway Mallampati Class: II (Caps lateral) TM Dist: >3cm Neck ROM: Full Heart: RRR Lungs: CtA BL Assessment and Plan Assessment Anesthesia Assessment: Anesthesia Plan Discussed and Chart Reviewed Final Anesthetic Review NPO: Yes ASA Class: II Final Preanesthetic Review: No Changes in Pt Med Stat and Consent Obtained/Reviewed Patient Risk: Intermediate Procedure Risk: Intermediate Anesthetic Plan Anesthetic Plan: GA Disposition: Standard PACU
--- NOTE | 2020-06-22 07:26 | MHC.SHP ---
Pre-Procedural Eval Section A The patient is an INPATIENT: No Changes since office visit: Yes Patient answered all questions; No Cold of Flu in the past 2 weeks, No New Medical Problems and No Changes in Medication The History & Physical has been completed within 30 days and I have reviewed it.: Yes Section B Chief Complaint: depression Allergies: Allergies Allergy/AdvReac Type Severity Reaction Status Date / Time morphine Allergy Unknown Verified 06/15/20 10:49 Plan I have reviewed the history and physical and performed a pertinent physical examination on my patient. No changes have occurred unless specified.
--- NOTE | 2020-06-22 07:26 | HO.ECTPROC ---
ECT Procedure Note Diagnosis/Treatment Date of Service: 06/22/20 Diagnosis: Major Depressive Disorder Previous ECT Date: 06/20/20 Current Treatment Number: 3 Treatment: Series Interval Clinical Notes: pt tolerating tx well ECT Settings Device: THYMATRON DGx Electrode Placement: Right Unilateral Program/Pulse Width: 0.50 Energy Percent: 70 Seizure Duration By EEG (in seconds): 49 Medications Administration General Anesthetic: Etomidate (12) Muscle Relaxant: Succinylcholine (100) Ancillary Medications Analgesics: Torodol - Pre ECT Anti-emetics: Zofran - Pre ECT Treatment Recommendations No Changes Recommended: No change Electrode Placement: Right Unilateral Program/Pulse Width: 0.50 Notes: cont ect monitor response
== END | disposition home or self-care (01) ==
PROVIDERS: Visit Provider Psychiatry & Neurology Psychiatry
PROC: (CPT 90870; principal; 2020-06-22 08:00)
DX: F33.3 Major depressive disorder, recurrent, severe with psychotic symptoms (principal)
CPT/HCPCS: 90870; J0330; J1885; J2405

== ENCOUNTER 2020-06-24 06:01 | Day surgery (SDC) | payer MEDICARE, SELFPAY ==
[2020-06-24 06:23] VITALS: BMI 25.1
[2020-06-24 06:34] VITALS: BP 123/74; PULSE 66; RESP 17; TEMP 36.4; O2SAT 96
--- NOTE | 2020-06-24 07:35 | P.CONAN_ITS ---
[facility] Active Problems Active Problems: All Active Problems (Updated 06/20/20 @ 09:56 by Dave pinzon) Anxiety (Acute) Major depressive disorder with psychotic features (Acute) Past Medical History Medical History Anxiety Depression Social History Social History Household Members: Spouse Housing: House Alcohol intake: never Smoking Status: Never smoker Second Hand Smoke Exposure: No Use of substances other than those prescribed or required for medical reasons: No Substance Use Type: Marijuana Advance Directives: No Advance Directives Information Provided: Yes Advance Directives Date on File: 06/22/20 Recently lost weight without trying: No service: No Sexual orientation: Straight/Heterosexual Meds Allergies Allergy/AdvReac Type Severity Reaction Status Date / Time morphine Allergy Unknown Verified 06/15/20 10:49 Home Medications Medication Instructions Recorded Confirmed Last Taken Type clonidine HCl 1 tab PO BID PRN 06/15/20 06/15/20 Unknown History fluoxetine 3 cap PO QAM 06/15/20 06/15/20 Unknown History gabapentin 1 tab PO TID 06/15/20 06/15/20 Unknown History latanoprost 1 drp OPHTHALMIC (EYE) CONT 06/15/20 06/15/20 Unknown History lorazepam 1 tab PO BID 06/15/20 06/15/20 Unknown History risperidone 1 tab PO BEDTIME 06/15/20 06/15/20 Unknown History Exam Exam Date and Time: June 24, 2020 0735 Height,Weight and Vital Signs: Height 5 ft 11 in Weight 81.647 kg Last Vital Signs Temp 97.6 F 06/24/20 06:34 Pulse 66 06/24/20 06:34 Resp 17 06/24/20 06:34 BP 123/74 06/24/20 06:34 Pulse Ox 96 06/24/20 06:34 Airway Heart: RrR Lungs: CTA BL Assessment and Plan Assessment Anesthesia Assessment: Anesthesia Plan Discussed and Chart Reviewed Final Anesthetic Review NPO: Yes ASA Class: III Final Preanesthetic Review: No Changes in Pt Med Stat and Consent Obtained/Reviewed Patient Risk: Intermediate Procedure Risk: Intermediate Anesthetic Plan Anesthetic Plan: GA Disposition: Standard PACU
[2020-06-24 08:13] VITALS: BP 156/84; PULSE 57; RESP 13; TEMP 36.8; O2SAT 99
[2020-06-24 08:18] VITALS: BP 173/89; PULSE 82; RESP 14; O2SAT 98
[2020-06-24 08:23] VITALS: BP 138/61; PULSE 84; RESP 16; O2SAT 98
[2020-06-24 08:28] VITALS: BP 123/79; PULSE 88; RESP 17; O2SAT 98
[2020-06-24 08:33] VITALS: BP 118/88; PULSE 84; RESP 16; O2SAT 96
--- NOTE | 2020-06-24 09:15 | HO.ECTPROC ---
ECT Procedure Note Diagnosis/Treatment Date of Service: 06/24/20 Diagnosis: Major Depressive Disorder Previous ECT Date: 06/22/20 Current Treatment Number: 4 Treatment: Series Interval Clinical Notes: Patient reported some limited improvement ECT Settings Device: THYMATRON DGx Electrode Placement: Right Unilateral Program/Pulse Width: 0.50 Energy Percent: 100 Seizure Duration By EEG (in seconds): 55 Medications Administration General Anesthetic: Etomidate (12) Muscle Relaxant: Succinylcholine (100) Ancillary Medications Analgesics: Torodol - Pre ECT Anti-emetics: Zofran - Pre ECT Airway Management Airway Management: Bag Mask Ventilation Treatment Recommendations No Changes Recommended: No change Pt Tolerated Procedure w/o Issue: Yes
== END 2020-06-24 09:11 | disposition home or self-care (01) ==
PROVIDERS: Visit Provider Psychiatry & Neurology Psychiatry
PROC: (CPT 90870; principal; 2020-06-24 09:00)
DX: F33.3 Major depressive disorder, recurrent, severe with psychotic symptoms (principal); Z79.899 Other long term (current) drug therapy; F12.90 Cannabis use, unspecified, uncomplicated
CPT/HCPCS: 90870; J0330; J1885; J2405

== ENCOUNTER 2020-06-27 06:08 | Day surgery (SDC) | payer MEDICARE, SELFPAY ==
[2020-06-27 06:38] VITALS: BMI 25.1
[2020-06-27 06:50] VITALS: BP 141/84; PULSE 79; RESP 20; TEMP 36.6; O2SAT 96
--- NOTE | 2020-06-27 07:46 | MHC.SHP ---
Pre-Procedural Eval Section A The patient is an INPATIENT: No Changes since office visit: No Cold of Flu in the past 2 weeks, No New Medical Problems, No Changes in Medication and No Patient answered all questions The History & Physical has been completed within 30 days and I have reviewed it.: Yes Section B Chief Complaint: depression Allergies: Allergies Allergy/AdvReac Type Severity Reaction Status Date / Time morphine Allergy Unknown Verified 06/15/20 10:49 Plan I have reviewed the history and physical and performed a pertinent physical examination on my patient. No changes have occurred unless specified.
--- NOTE | 2020-06-27 07:46 | HO.ECTPROC ---
ECT Procedure Note Diagnosis/Treatment Date of Service: 06/27/20 Diagnosis: Major Depressive Disorder Previous ECT Date: 06/24/20 Current Treatment Number: 5 Treatment: Series Interval Clinical Notes: The patient reported still anxiety and dysphoria. ECT Settings Device: THYMATRON DGx Electrode Placement: Right Unilateral Program/Pulse Width: 0.50 Energy Percent: 100 Seizure Duration By EEG (in seconds): 50 Medications Administration General Anesthetic: Etomidate (16) Muscle Relaxant: Succinylcholine (100) Ancillary Medications Analgesics: Torodol - Pre ECT Anti-emetics: Zofran - Pre ECT Airway Management Airway Management: Bag Mask Ventilation Treatment Recommendations Pt Tolerated Procedure w/o Issue: Yes
[2020-06-27 07:57] VITALS: BP 148/88; PULSE 69; RESP 18; TEMP 37.4; O2SAT 98
--- NOTE | 2020-06-27 08:02 | P.CONAN_ITS ---
HPI - Anesthesia Eval Consult details Narrative: 64 yo make patient here for ECT PMFSH Active Problems Active Problems: All Active Problems (Updated 06/20/20 @ 09:56 by Dave Ibrahim) Anxiety (Acute) Major depressive disorder with psychotic features (Acute) Past Medical History Medical History Anxiety Depression Social History Social History Household Members: Spouse Housing: House Alcohol intake: never Smoking Status: Never smoker Second Hand Smoke Exposure: No Substance Use Type: Marijuana Advance Directives: No Advance Directives Information Provided: Yes Advance Directives Date on File: 06/22/20 service: No Sexual orientation: Straight/Heterosexual Meds Allergies Allergy/AdvReac Type Severity Reaction Status Date / Time morphine Allergy Unknown Verified 06/15/20 10:49 Active Medications: Current Medications Generic Name Dose Route Start Last Admin Trade Name Freq PRN Reason Stop Dose Admin Lactated Ringer's 1,000 mls @ 50 mls/hr 06/27/20 08:00 Lr IV .Q20H [facility] Home Medications Medication Instructions Recorded Confirmed Last Taken Type clonidine HCl 1 tab PO BID PRN 06/15/20 06/15/20 Unknown History fluoxetine 3 cap PO QAM 06/15/20 06/15/20 Unknown History gabapentin 1 tab PO TID 06/15/20 06/15/20 Unknown History latanoprost 1 drp OPHTHALMIC (EYE) CONT 06/15/20 06/15/20 Unknown History lorazepam 1 tab PO BID 06/15/20 06/15/20 Unknown History risperidone 1 tab PO BEDTIME 06/15/20 06/15/20 Unknown History Exam Exam Date and Time: June 27, 2020 08 Height,Weight and Vital Signs: Height 5 ft 11 in Weight 81.647 kg Last Vital Signs Temp 99.4 F 06/27/20 07:57 Pulse 69 06/27/20 07:57 Resp 18 06/27/20 07:57 BP 148/88 H 06/27/20 07:57 Pulse Ox 98 06/27/20 07:57 Airway Mallampati Class: III TM Dist: >3cm Neck ROM: Full Heart: RRR Lungs: CTAB Assessment and Plan Assessment Anesthesia Assessment: Anesthesia Plan Discussed and Chart Reviewed Final Anesthetic Review NPO: Yes ASA Class: III Final Preanesthetic Review: No Changes in Pt Med Stat, Meds/Allgs Chart Reviewed, Consent Obtained/Reviewed and Anes Risks/Benef Reviewed Patient Risk: Intermediate Procedure Risk: Intermediate Assessment/Block/Sedation in SS: Assess/Block/Sedation-SS Anesthetic Plan Anesthetic Plan: GA Disposition: Standard PACU
[2020-06-27 08:03] VITALS: BP 145/89; PULSE 80; RESP 18; O2SAT 97
[2020-06-27 08:08] VITALS: BP 159/96; PULSE 85; RESP 18; O2SAT 97
[2020-06-27 08:13] VITALS: BP 156/88; PULSE 83; RESP 18; O2SAT 95
[2020-06-27 08:28] VITALS: BP 151/95; PULSE 75; RESP 18; O2SAT 95
== END 2020-06-27 08:57 | disposition home or self-care (01) ==
PROVIDERS: Visit Provider Psychiatry & Neurology Psychiatry
PROC: (CPT 90870; principal; 2020-06-27 07:30)
DX: F33.3 Major depressive disorder, recurrent, severe with psychotic symptoms (principal); Z79.899 Other long term (current) drug therapy
CPT/HCPCS: 90870; J0330; J1885; J2405

== ENCOUNTER 2020-07-18 06:02 | Day surgery (SDC) | payer MEDICARE, SELFPAY ==
[2020-07-18] VITALS (8 sets, daily range): BP systolic 129–146; BP diastolic 82–95; PULSE 59–84; RESP 16–17; TEMP 36.4–37.3; O2SAT 96–98; BMI 25.1; BMI 26.4
--- NOTE | 2020-07-18 07:34 | HO.ECTPROC ---
ECT Procedure Note Diagnosis/Treatment Date of Service: 07/18/20 Diagnosis: Major Depressive Disorder Previous ECT Date: 06/24/20 Current Treatment Number: 6 Treatment: Series Interval Clinical Notes: The patient reported been more anxious, pacing all day around, more dysphoric since last week. ECT Settings Device: THYMATRON DGx Electrode Placement: Bifrontal Program/Pulse Width: 0.50 Energy Percent: 100 Seizure Duration By EEG (in seconds): 42 Medications Administration General Anesthetic: Etomidate (14) Muscle Relaxant: Succinylcholine (100) Ancillary Medications Analgesics: Torodol - Pre ECT Anti-emetics: Zofran - Pre ECT Cardiovascular Medications: Glycopyrrolate Miscillaneous Medications: Propofol Airway Management Airway Management: Bag Mask Ventilation Treatment Recommendations Electrode Placement: Right Unilateral Program/Pulse Width: 0.50 Energy Percent: 100 Notes: Glyxopirrolate pre-ECT was recommended by Anesthesia on next procedure Pt Tolerated Procedure w/o Issue: Yes
--- NOTE | 2020-07-18 07:40 | HO.ANESPROP2 ---
[facility] Active Problems Active Problems: All Active Problems (Updated 06/20/20 @ 09:56 by Dave Ibrahim) Anxiety (Acute) Major depressive disorder with psychotic features (Acute) Past Medical History Medical History Anxiety Depression Social History Social History Household Members: Spouse Housing: House Alcohol intake: never Smoking Status: Never smoker Second Hand Smoke Exposure: No Use of substances other than those prescribed or required for medical reasons: No Substance Use Type: Marijuana Advance Directives: No Advance Directives Information Provided: Yes Advance Directives Date on File: 06/22/20 Recently lost weight without trying: No service: No Sexual orientation: Straight/Heterosexual Meds Allergies Allergy/AdvReac Type Severity Reaction Status Date / Time morphine Allergy Unknown Verified 06/15/20 10:49 Home Medications Medication Instructions Recorded Confirmed Last Taken Type clonidine HCl 1 tab PO BID PRN 06/15/20 06/15/20 Unknown History fluoxetine 3 cap PO QAM 06/15/20 06/15/20 Unknown History gabapentin 1 tab PO TID 06/15/20 06/15/20 Unknown History latanoprost 1 drp OPHTHALMIC (EYE) CONT 06/15/20 06/15/20 Unknown History lorazepam 1 tab PO BID 06/15/20 06/15/20 Unknown History risperidone 1 tab PO BEDTIME 06/15/20 06/15/20 Unknown History Exam Exam Date and Time: July 18, 2020 0740 Height,Weight and Vital Signs: Height 5 ft 11 in Weight 86.183 kg Last Vital Signs Temp 97.5 F 07/18/20 06:35 Pulse 59 07/18/20 06:35 Resp 17 07/18/20 06:35 BP 129/82 07/18/20 06:35 Pulse Ox 98 07/18/20 06:35 Airway Mallampati Class: II TM Dist: >3cm Neck ROM: Full Heart: RRR Lungs: CTA
== END 2020-07-18 09:25 | disposition home or self-care (01) ==
PROVIDERS: Visit Provider Psychiatry & Neurology Psychiatry
PROC: (CPT 90870; principal; 2020-07-18 15:00)
DX: F33.3 Major depressive disorder, recurrent, severe with psychotic symptoms (principal); Z79.899 Other long term (current) drug therapy; Z88.8 Allergy status to other drugs, medicaments and biological substances
CPT/HCPCS: 90870; J0330; J0461; J1885; J2405

== ENCOUNTER 2020-07-27 06:03 | Day surgery (SDC) | payer MEDICARE, SELFPAY ==
[2020-07-27 06:19] VITALS: BMI 25.1
[2020-07-27 06:31] VITALS: BP 134/88; PULSE 55; RESP 20; TEMP 36.2; O2SAT 97
--- NOTE | 2020-07-27 06:49 | HO.ANESPROP2 ---
[facility] Active Problems Active Problems: All Active Problems (Updated 06/20/20 @ 09:56 by Dave Ibrahim) Anxiety (Acute) Major depressive disorder with psychotic features (Acute) Past Medical History Medical History Anxiety Depression Social History Social History Household Members: Spouse Housing: House Alcohol intake: never Smoking Status: Never smoker Second Hand Smoke Exposure: No Substance Use Type: Marijuana Are you DNR?: No Advance Directives: No Advance Directives Information Provided: Yes Advance Directives Date on File: 06/22/20 service: No Sexual orientation: Straight/Heterosexual Meds Allergies Allergy/AdvReac Type Severity Reaction Status Date / Time morphine Allergy Unknown Verified 06/15/20 10:49 Home Medications Medication Instructions Recorded Confirmed Last Taken Type clonidine HCl 1 tab PO BID PRN 06/15/20 06/15/20 Unknown History fluoxetine 3 cap PO QAM 06/15/20 06/15/20 Unknown History gabapentin 1 tab PO TID 06/15/20 06/15/20 Unknown History latanoprost 1 drp OPHTHALMIC (EYE) CONT 06/15/20 06/15/20 Unknown History lorazepam 1 tab PO BID 06/15/20 06/15/20 Unknown History risperidone 1 tab PO BEDTIME 06/15/20 06/15/20 Unknown History Exam Exam Date and Time: July 27, 2020 0649 Height,Weight and Vital Signs: Height 5 ft 11 in Weight 81.647 kg Last Vital Signs Temp 97.2 F 07/27/20 06:31 Pulse 55 07/27/20 06:31 Resp 20 07/27/20 06:31 BP 134/88 07/27/20 06:31 Pulse Ox 97 07/27/20 06:31 Airway Mallampati Class: II TM Dist: >3cm Neck ROM: Full Heart: RRr Lungs: CTA Assessment and Plan Assessment Anesthesia Assessment: Anesthesia Plan Discussed and Chart Reviewed Final Anesthetic Review NPO: Yes (Sip water with med) ASA Class: III Final Preanesthetic Review: No Changes in Pt Med Stat and Consent Obtained/Reviewed Patient Risk: Intermediate Procedure Risk: Intermediate Anesthetic Plan Anesthetic Plan: GA and Regional Block
--- NOTE | 2020-07-27 07:02 | MHC.SHP ---
Pre-Procedural Eval Section A The patient is an INPATIENT: No Changes since office visit: No Cold of Flu in the past 2 weeks, No New Medical Problems, No Changes in Medication and No Patient answered all questions The History & Physical has been completed within 30 days and I have reviewed it.: Yes Section B Chief Complaint: major depressive disorder Details of Present Illness: The patient was referred to ECT from outpatient provider due to exacerbation of depression and anxiety. Relevant Family History (Specify if Yes): No Relevant Social History: None Present Medications: see Short Stay Collaborative assessment Medical History: No relevant PMH History of Previous Operations: No relevant previous surgery Allergies: Allergies Allergy/AdvReac Type Severity Reaction Status Date / Time morphine Allergy Unknown Verified 06/15/20 10:49 Review of Systems Sugical H&P ROS: Negative: Constitution, Cardiovascular, Respiratory, Neurological, Hem-Onc, Allergic/Immunologic, Gastrointestinal, Genitourinary, Musculoskeletal, Integumentary and Endocrine and Yes, Specify: Psychiatric (Depression and anxiety) Exam Surgical H&P Exam: Normal: HEENT, Normal: Heart, Normal: Lungs, Normal: Extremities, Normal: Abdomen, Normal: Skin and Normal: Neurological Plan Diagnosis/Plan: Unchanged I have reviewed the history and physical and performed a pertinent physical examination on my patient. No changes have occurred unless specified.
--- NOTE | 2020-07-27 07:07 | HO.ECTPROC ---
ECT Procedure Note Diagnosis/Treatment Date of Service: 07/27/20 Diagnosis: Major Depressive Disorder Current Treatment Number: 7 Treatment: Series Interval Clinical Notes: The patient reported improvement of his mood, less dysphoric and anxious, he took PRN AM before coming to the hospital. No evidence of safety concerns. ECT Settings Device: THYMATRON DGx Electrode Placement: Right Unilateral Program/Pulse Width: 0.50 Energy Percent: 100 Seizure Duration By EEG (in seconds): 45 By Motor Observation (in seconds): 42 Medications Administration General Anesthetic: Etomidate (16) Muscle Relaxant: Succinylcholine (100) Ancillary Medications Analgesics: Torodol - Pre ECT Anti-emetics: Zofran - Pre ECT Cardiovascular Medications: Atropine and Glycopyrrolate Miscillaneous Medications: Propofol and Flumazenil Airway Management Airway Management: Bag Mask Ventilation Treatment Recommendations No Changes Recommended: No change Pt Tolerated Procedure w/o Issue: Yes
[2020-07-27 07:27] VITALS: BP 163/89; PULSE 60; RESP 12; TEMP 36.5; O2SAT 99
[2020-07-27 07:33] VITALS: BP 166/86; PULSE 76; RESP 12; O2SAT 97
[2020-07-27 07:38] VITALS: BP 155/101; PULSE 79; RESP 14; O2SAT 98
[2020-07-27 07:44] VITALS: PULSE 79; RESP 12; O2SAT 98
[2020-07-27 07:58] VITALS: BP 146/84; PULSE 78; RESP 16; TEMP 36.6; O2SAT 98
== END 2020-07-27 08:30 | disposition home or self-care (01) ==
PROVIDERS: Visit Provider Psychiatry & Neurology Psychiatry
PROC: (CPT 90870; principal; 2020-07-27 08:00)
DX: F33.3 Major depressive disorder, recurrent, severe with psychotic symptoms (principal); Z79.899 Other long term (current) drug therapy; Z88.8 Allergy status to other drugs, medicaments and biological substances
CPT/HCPCS: 90870; J0330; J0461; J1885; J2405

== ENCOUNTER 2020-08-03 08:53 | Day surgery (SDC) | payer MEDICARE, SELFPAY ==
[2020-08-03 09:15] VITALS: BMI 25.1
[2020-08-03 09:30] VITALS: BP 141/87; PULSE 58; RESP 18; TEMP 36.1; O2SAT 96
--- NOTE | 2020-08-03 10:05 | HO.ANESPROP2 ---
[facility] Active Problems Active Problems: All Active Problems (Updated 06/20/20 @ 09:56 by Dave Ibrahim) Anxiety (Acute) Major depressive disorder with psychotic features (Acute) Past Medical History Medical History Anxiety Depression Social History Social History Household Members: Spouse Housing: House Alcohol intake: never Smoking Status: Never smoker Second Hand Smoke Exposure: No Use of substances other than those prescribed or required for medical reasons: No Substance Use Type: Marijuana Are you DNR?: No Advance Directives: Yes Advance Directives on File: Yes Advance Directives Date on File: 06/22/20 service: No Sexual orientation: Straight/Heterosexual Meds Allergies Allergy/AdvReac Type Severity Reaction Status Date / Time morphine Allergy Unknown Verified 08/03/20 09:19 Active Medications: Current Medications Generic Name Dose Route Start Last Admin Trade Name Freq PRN Reason Stop Dose Admin Lactated Ringer's 1,000 mls @ 20 mls/hr 08/03/20 10:15 Lr IVCONT .Q24H SMITA Home Medications Medication Instructions Recorded Confirmed Last Taken Type clonidine HCl 1 tab PO BID PRN 06/15/20 06/15/20 Unknown History fluoxetine 3 cap PO QAM 06/15/20 06/15/20 08/03/20 07:00 History gabapentin 1 tab PO TID 06/15/20 06/15/20 Unknown History latanoprost 1 drp OPHTHALMIC (EYE) CONT 06/15/20 06/15/20 Unknown History lorazepam 1 tab PO BID 06/15/20 06/15/20 Unknown History risperidone 1 tab PO BEDTIME 06/15/20 06/15/20 Unknown History clonazepam 1 tab PO TID 08/03/20 08/03/20 08/03/20 07:00 History propranolol 1 tab PO TID 08/03/20 08/03/20 08/03/20 07:00 History Exam Exam Date and Time: August 03, 2020 1005 Height,Weight and Vital Signs: Height 5 ft 11 in Weight 81.647 kg Last Vital Signs Temp 96.9 F 08/03/20 09:30 Pulse 58 08/03/20 09:30 Resp 18 08/03/20 09:30 BP 141/87 H 08/03/20 09:30 Pulse Ox 96 08/03/20 09:30 Airway Mallampati Class: II TM Dist: >3cm Neck ROM: Full Heart: RRR Lungs: CTA Assessment and Plan Assessment Anesthesia Assessment: Anesthesia Plan Discussed and Chart Reviewed Final Anesthetic Review NPO: Yes (Sip water with meds) ASA Class: III Final Preanesthetic Review: No Changes in Pt Med Stat and Consent Obtained/Reviewed Patient Risk: Intermediate Procedure Risk: Intermediate Anesthetic Plan Anesthetic Plan: MAC: Disposition: Standard PACU
[2020-08-03] MEDS: Lactated Ringers 1,000 ML 20 ML IVCONT (10:10)
--- NOTE | 2020-08-03 10:14 | MHC.SHP ---
Pre-Procedural Eval Section A The patient is an INPATIENT: No Changes since office visit: Yes Changes in Medication and Yes Patient answered all questions; No Cold of Flu in the past 2 weeks and No New Medical Problems The History & Physical has been completed within 30 days and I have reviewed it.: Yes Section B Chief Complaint: major depressive disorder Allergies: Allergies Allergy/AdvReac Type Severity Reaction Status Date / Time morphine Allergy Unknown Verified 08/03/20 09:19 Plan I have reviewed the history and physical and performed a pertinent physical examination on my patient. No changes have occurred unless specified.
--- NOTE | 2020-08-03 10:18 | HO.ECTPROC ---
ECT Procedure Note Diagnosis/Treatment Date of Service: 08/03/20 Diagnosis: Major Depressive Disorder Previous ECT Date: 07/27/20 Current Treatment Number: 8 Interval Clinical Notes: pt anxious ruminating pacing and restless ECT Settings Device: THYMATRON DGx Electrode Placement: Right Unilateral Program/Pulse Width: 0.25 Energy Percent: 100 Seizure Duration By EEG (in seconds): 26 Medications Administration General Anesthetic: Etomidate (16) and Propofol (30 mg pre tx 16 etomidate not sufficient) Muscle Relaxant: Succinylcholine (100 mg) Ancillary Medications Analgesics: Torodol - Pre ECT Anti-emetics: Zofran - Pre ECT Cardiovascular Medications: Glycopyrrolate Miscillaneous Medications: Flumazenil Airway Management Airway Management: Bag Mask Ventilation Treatment Recommendations Electrode Placement: Right Unilateral Program/Pulse Width: 0.25 Energy Percent: 100 Notes: post tx bradycardia consider change to brevital had propofol pre and post evaluate pts response had confusion in past coordinate with dr carranza
[2020-08-03 10:40] VITALS: BP 174/97; PULSE 79; RESP 12; TEMP 36.1; O2SAT 98
[2020-08-03 10:45] VITALS: BP 139/94; PULSE 81; RESP 16; O2SAT 98
[2020-08-03 10:50] VITALS: BP 131/94; PULSE 83; RESP 16; O2SAT 98
[2020-08-03 10:55] VITALS: BP 136/104; PULSE 83; RESP 18; O2SAT 99
[2020-08-03 11:09] VITALS: BP 150/97; PULSE 74; RESP 18; TEMP 36.1; O2SAT 98
== END 2020-08-03 11:30 ==
LOC: HO.SSS 08:53
PROVIDERS: Visit Provider Psychiatry & Neurology Psychiatry
PROC: (CPT 90870; principal; 2020-08-03 10:00)
DX: F33.3 Major depressive disorder, recurrent, severe with psychotic symptoms (principal); F41.8 Other specified anxiety disorders; R45.1 Restlessness and agitation
CPT/HCPCS: 90870; J0330; J0461; J1885; J2405

== ENCOUNTER 2020-08-10 06:04 | Day surgery (SDC) | payer MEDICARE, SELFPAY ==
[2020-08-10] VITALS (7 sets, daily range): BP systolic 135–187; BP diastolic 79–104; PULSE 56–80; RESP 16–20; TEMP 36.4–37; O2SAT 95–100; BMI 25.1
--- NOTE | 2020-08-10 07:34 | MHC.SHP ---
Pre-Procedural Eval Section A The patient is an INPATIENT: No Changes since office visit: Yes Changes in Medication; No Cold of Flu in the past 2 weeks, No New Medical Problems and No Patient answered all questions The History & Physical has been completed within 30 days and I have reviewed it.: Yes Section B Chief Complaint: Severe Depression Allergies: Allergies Allergy/AdvReac Type Severity Reaction Status Date / Time morphine Allergy Unknown Verified 08/03/20 09:19 Plan I have reviewed the history and physical and performed a pertinent physical examination on my patient. No changes have occurred unless specified.
--- NOTE | 2020-08-10 07:56 | HO.ECTPROC ---
ECT Procedure Note Diagnosis/Treatment Date of Service: 08/10/20 Diagnosis: Bipolar disorder Previous ECT Date: 08/03/20 Current Treatment Number: 9 Treatment: Series (continuation ) Interval Clinical Notes: pt remains depressed ruminating constantly restless ECT Settings Device: THYMATRON DGx Electrode Placement: Right Unilateral Program/Pulse Width: 0.25 Energy Percent: 100 Seizure Duration By EEG (in seconds): 24 Medications Administration General Anesthetic: Etomidate (20 mg) Ancillary Medications Analgesics: Torodol - Pre ECT (15) Anti-emetics: Zofran - Pre ECT (4) Cardiovascular Medications: Glycopyrrolate (pre tx secondary to prior bradycardia ) Miscillaneous Medications: Flumazenil Airway Management Airway Management: Bag Mask Ventilation Treatment Recommendations Notes: pt not responding has periods of confusion post ect has akathesia does not seenm like ect helpful might bbeefit from bilateral but can not tolerate Pt Tolerated Procedure w/o Issue: No
[2020-08-10] MEDS: LORazepam 0.5 MG TABLET PO (09:00)
== END 2020-08-10 09:18 | disposition home or self-care (01) ==
PROVIDERS: Visit Provider Psychiatry & Neurology Psychiatry
PROC: (CPT 90870; principal; 2020-08-10 07:00)
DX: F31.9 Bipolar disorder, unspecified (principal); R45.1 Restlessness and agitation
CPT/HCPCS: 90870; J0330; J0461; J1885; J2250; J2405